=== PATIENT | female | born 1970 | race African-American/Black ===

== ENCOUNTER 2020-11-23 18:26 | Inpatient (IN) ==
[2020-11-23] MEDS ORDERED: METOCLOPRAMIDE 10 MG/2 ML VIAL ONE (20:07)
[2020-11-23] MEDS ORDERED: ONDANSETRON 4 MG/2 ML VIAL ONE (20:07)
[2020-11-23] MEDS ORDERED: PANTOPRAZOLE 40 MG VIAL IV ONE (20:07)
[2020-11-23 20:25] LABS: Basophils % 0.2 % (0.0-0.8); Hematocrit 40.9 VOL% (35.7-47.0); Hemoglobin 13.3 GM/DL (12.0-16.0); Immature Granulocytes % 0.6 %; Immature Granulocytes Absolute 0.03 #; Lymphocytes # 0.8 10*3/uL (1.4-4.0); Lymphocytes % 16.6 % (21.3-54.2); Mean Corpuscular HGB Conc 32.5 GM/DL (32-36); Mean Corpuscular Volume 81.3 FL (87-102); Mean Platelet Volume 10.7 FL (9.6-12.0); Monocytes % 4.6 % (1.7-12.7); Platelet Count 178 T/CUMM (130-400); Red Blood Count 5.03 MC/CUMM (3.8-5.5); White Blood Count 4.8 T/CUMM (4-12)
[2020-11-23] MEDS ORDERED: METOCLOPRAMIDE 10 MG/2 ML VIAL IV STA (20:37)
[2020-11-23] MEDS ORDERED: ONDANSETRON 4 MG/2 ML VIAL IV STA (20:37)
[2020-11-23] MEDS ORDERED: PANTOPRAZOLE 40 MG VIAL IV STA (20:37)
[2020-11-23] MEDS ORDERED: SODIUM CHLORIDE 0.9% 1,000 ML IV STA (20:37)
[2020-11-23 21:03] LABS: Alanine Aminotransferase 22 U/L (13-56); Albumin 3.2 G/DL (3.4-5.0); Alkaline Phosphatase 67 U/L (45-117); Aspartate Amino Transferase 58 U/L (0-37); Bilirubin,Total < 0.39 MG/DL (0.20-1.00); Blood Urea Nitrogen 17 MG/DL (7-18); Calcium 8.8 MG/DL (8.5-10.1); Carbon Dioxide 28 MMOL/L (21-32); Estimated Glom Filtration Rate 86 ML/MIN; Ferritin 293.9 ng/ml (8-252); Glucose 91 MG/DL (74-106); Osmolality,Calculated 269.2 MOS/KG (273-304); Potassium 3.7 MMOL/L (3.5-5.1); Sodium 134 MMOL/L (136-145); Total Protein 7.2 G/DL (6.4-8.2)
[2020-11-23] MEDS ORDERED: cefTRIAXone 1,000 MG in SODIUM CHLORIDE 0.9% 100 ML IV STA (21:09)
[2020-11-23] MEDS ORDERED: AZITHROMYCIN INJ 500 MG in SODIUM CHLORIDE 0.9% 250 ML IV STA (21:09)
[2020-11-23 21:39] LABS: ABG Base Excess -0.3 MMOL/L (-2.5-2.5); ABG HCO3 23.7 MMOL/L (20-26); ABG PCO2 36.6 MM HG (35-48); ABG PH 7.429 (7.35-7.45); ABG PO2 59.1 MM HG (80-95); ABG TCO2 24.8 MMOL/L (23-27); Allen Test Positive; Pt O2 Delivery Device Room Air
[2020-11-23] MEDS ORDERED: ONDANSETRON 4 MG/2 ML VIAL IV PRN (21:44)
[2020-11-23] MEDS ORDERED: CALCIUM CARBONATE CHEW 500 MG TABLET PO PRN (21:44)
[2020-11-23] MEDS ORDERED: diphenhydrAMINE CAP 25 MG CAPSULE PO PRN (21:44)
[2020-11-23] MEDS ORDERED: DEXTROSE 50% 25 GM/50 ML VIAL IV PRN (21:44)
[2020-11-23] MEDS ORDERED: NICOTINE 21 MG/24 HR PATCH TRANSDERM PRN (21:44)
[2020-11-23] MEDS ORDERED: GLUCAGON 1 MG VIAL IM PRN (21:44)
[2020-11-23] MEDS: ENOXAPARIN 40 MG/0.4 ML SYRINGE SUBCUT SCH (23:55)
[2020-11-23] MEDS: SODIUM CHLORIDE 0.9% 1,000 ML IV SCH (23:55)
[2020-11-24] MEDS: ACETAMINOPHEN 325 MG TABLET PO PRN ×2 (04:43→08:30)
[2020-11-24 06:55] LABS: Ferritin 283.3 ng/ml (8-252)
[2020-11-24] MEDS: guaiFENesin/DM ER 600-30 MG TABLET PO PRN (08:20)
[2020-11-24] MEDS: ASCORBIC ACID 500 MG TABLET PO SCH ×2 (08:20→21:41)
[2020-11-24] MEDS: DEXAMETHASONE 4 MG/1 ML VIAL IV SCH (08:20)
[2020-11-24] MEDS: CETIRIZINE 10 MG TABLET PO SCH (08:20)
[2020-11-24] MEDS: ZINC GLUCONATE 50 MG TABLET PO SCH (08:20)
[2020-11-24] MEDS: CHOLECALCIFEROL 1,000 UNIT TABLET PO SCH (08:20)
[2020-11-24] MEDS: FAMOTIDINE 20 MG TABLET PO SCH ×2 (08:20→21:40)
[2020-11-24] MEDS ORDERED: IBUPROFEN 600 MG TABLET PO PRN (08:58)
[2020-11-24] MEDS: AZITHROMYCIN 250 MG TABLET PO SCH (10:28)
[2020-11-24] MEDS: SODIUM CHLORIDE 0.9% 1,000 ML IV SCH (13:20)
[2020-11-24] MEDS: ENOXAPARIN 40 MG/0.4 ML SYRINGE SUBCUT SCH (21:40)
[2020-11-24] MEDS: MELATONIN 3 MG TABLET PO PRN (21:40)
[2020-11-24] MEDS: cefTRIAXone 1,000 MG in SODIUM CHLORIDE 0.9% 100 ML IV SCH (21:41)
[2020-11-25 05:08] LABS: Hematocrit 34.9 VOL% (35.7-47.0); Hemoglobin 11.3 GM/DL (12.0-16.0); Immature Granulocytes % 0.8 %; Immature Granulocytes Absolute 0.06 #; Lymphocytes # 0.6 10*3/uL (1.4-4.0); Lymphocytes % 8.2 % (21.3-54.2); Mean Corpuscular HGB Conc 32.4 GM/DL (32-36); Mean Corpuscular Volume 82.7 FL (87-102); Mean Platelet Volume 11.8 FL (9.6-12.0); Monocytes % 2.9 % (1.7-12.7); Neutrophils % 88.1 % (38.7-73.9); Platelet Count 199 T/CUMM (130-400); Red Blood Count 4.22 MC/CUMM (3.8-5.5); Red Cell Distribution Width 14.5 % (9.3-17.3); White Blood Count 7.2 T/CUMM (4-12)
[2020-11-25 05:43] LABS: Calcium 8.4 MG/DL (8.5-10.1); Ferritin 368.9 ng/ml (8-252); Osmolality,Calculated 275.8 MOS/KG (273-304); Potassium 4.5 MMOL/L (3.5-5.1)
[2020-11-25] MEDS: DEXAMETHASONE 4 MG/1 ML VIAL IV SCH (08:30)
[2020-11-25] MEDS: ZINC GLUCONATE 50 MG TABLET PO SCH (08:31)
[2020-11-25] MEDS: FAMOTIDINE 20 MG TABLET PO SCH ×2 (08:31→21:45)
[2020-11-25] MEDS: CETIRIZINE 10 MG TABLET PO SCH (08:31)
[2020-11-25] MEDS: ASCORBIC ACID 500 MG TABLET PO SCH ×2 (08:31→21:45)
[2020-11-25] MEDS: CHOLECALCIFEROL 1,000 UNIT TABLET PO SCH (08:31)
[2020-11-25] MEDS: AZITHROMYCIN 250 MG TABLET PO SCH (08:31)
[2020-11-25] MEDS ORDERED: CLORAZEPATE 3.75 MG TABLET PO PRN (11:17)
[2020-11-25] MEDS: IVERMECTIN 3 MG TABLET PO SCH (16:24)
[2020-11-25] MEDS ORDERED: CLORAZEPATE 3.75 MG TABLET PO SCH (21:00)
[2020-11-25] MEDS: ENOXAPARIN 40 MG/0.4 ML SYRINGE SUBCUT SCH (21:45)
[2020-11-25] MEDS: cefTRIAXone 1,000 MG in SODIUM CHLORIDE 0.9% 100 ML IV SCH (21:45)
[2020-11-25] MEDS: MELATONIN 3 MG TABLET PO PRN (21:50)
[2020-11-26 04:07] LABS: Hematocrit 35.1 VOL% (35.7-47.0); Hemoglobin 11.1 GM/DL (12.0-16.0); Immature Granulocytes % 0.7 %; Immature Granulocytes Absolute 0.05 #; Lymphocytes # 0.5 10*3/uL (1.4-4.0); Lymphocytes % 7.4 % (21.3-54.2); Mean Corpuscular HGB Conc 31.6 GM/DL (32-36); Mean Corpuscular Volume 82.2 FL (87-102); Mean Platelet Volume 11.4 FL (9.6-12.0); Monocytes % 7.4 % (1.7-12.7); Neutrophils % 84.5 % (38.7-73.9); Platelet Count 219 T/CUMM (130-400); Red Blood Count 4.27 MC/CUMM (3.8-5.5); Red Cell Distribution Width 14.7 % (9.3-17.3); White Blood Count 6.9 T/CUMM (4-12)
[2020-11-26 04:28] LABS: Hypochromasia 1+; Microcytosis 1+; Ovalocytes Slight; Platelet Estimate Normal
[2020-11-26 04:34] LABS: Alanine Aminotransferase 43 U/L (13-56); Albumin 2.3 G/DL (3.4-5.0); Alkaline Phosphatase 69 U/L (45-117); Aspartate Amino Transferase 116 U/L (0-37); Bilirubin,Total < 0.39 MG/DL (0.20-1.00); Blood Urea Nitrogen 21 MG/DL (7-18); Calcium 8.4 MG/DL (8.5-10.1); Carbon Dioxide 24 MMOL/L (21-32); Estimated Glom Filtration Rate 149 ML/MIN; Glucose 100 MG/DL (74-106); Osmolality,Calculated 277.7 MOS/KG (273-304); Potassium 4.3 MMOL/L (3.5-5.1); Sodium 138 MMOL/L (136-145); Total Protein 6.3 G/DL (6.4-8.2)
[2020-11-26 04:37] LABS: Ferritin 736.1 ng/ml (8-252)
[2020-11-26] MEDS: DEXAMETHASONE 4 MG/1 ML VIAL IV SCH (08:37)
[2020-11-26] MEDS: IVERMECTIN 3 MG TABLET PO SCH (08:37)
[2020-11-26] MEDS: CETIRIZINE 10 MG TABLET PO SCH (08:38)
[2020-11-26] MEDS: ZINC GLUCONATE 50 MG TABLET PO SCH (08:38)
[2020-11-26] MEDS: ASCORBIC ACID 500 MG TABLET PO SCH ×2 (08:38→20:44)
[2020-11-26] MEDS: AZITHROMYCIN 250 MG TABLET PO SCH (08:38)
[2020-11-26] MEDS: CHOLECALCIFEROL 1,000 UNIT TABLET PO SCH (08:38)
[2020-11-26] MEDS: FAMOTIDINE 20 MG TABLET PO SCH ×2 (08:38→20:44)
[2020-11-26] MEDS: ENOXAPARIN 40 MG/0.4 ML SYRINGE SUBCUT SCH (20:44)
[2020-11-26] MEDS: cefTRIAXone 1,000 MG in SODIUM CHLORIDE 0.9% 100 ML IV SCH (20:44)
[2020-11-26] MEDS: CLORAZEPATE 3.75 MG TABLET PO PRN (21:45)
[2020-11-26] MEDS: MELATONIN 3 MG TABLET PO PRN (22:05)
[2020-11-27 04:56] LABS: Basophils % 0.1 % (0.0-0.8); Hematocrit 36.2 VOL% (35.7-47.0); Hemoglobin 11.7 GM/DL (12.0-16.0); Immature Granulocytes Absolute 0.07 #; Lymphocytes # 0.7 10*3/uL (1.4-4.0); Lymphocytes % 9.9 % (21.3-54.2); Mean Corpuscular HGB Conc 32.3 GM/DL (32-36); Mean Corpuscular Volume 82.8 FL (87-102); Mean Platelet Volume 11.6 FL (9.6-12.0); Monocytes % 9.1 % (1.7-12.7); Neutrophils % 79.9 % (38.7-73.9); Platelet Count 281 T/CUMM (130-400); Red Blood Count 4.37 MC/CUMM (3.8-5.5); Red Cell Distribution Width 14.7 % (9.3-17.3); White Blood Count 7.3 T/CUMM (4-12)
[2020-11-27 05:20] LABS: Ferritin 1045.3 ng/ml (8-252)
[2020-11-27 05:21] LABS: Albumin 2.4 G/DL (3.4-5.0); Bilirubin,Total 0.4 MG/DL (0.20-1.00); Calcium 8.6 MG/DL (8.5-10.1); Osmolality,Calculated 272.8 MOS/KG (273-304); Total Protein 6.5 G/DL (6.4-8.2)
[2020-11-27 05:56] LABS: Band Neutrophils 1 % (0-10); Lymphocytes 7 % (20-55); Platelet Estimate Normal; Segmented Neutrophils 82 % (50-85); Total Cells Counted 100
[2020-11-27] MEDS: CHOLECALCIFEROL 1,000 UNIT TABLET PO SCH (09:11)
[2020-11-27] MEDS: IVERMECTIN 3 MG TABLET PO SCH (09:11)
[2020-11-27] MEDS: ASCORBIC ACID 500 MG TABLET PO SCH ×2 (09:11→20:30)
[2020-11-27] MEDS: CETIRIZINE 10 MG TABLET PO SCH (09:11)
[2020-11-27] MEDS: ZINC GLUCONATE 50 MG TABLET PO SCH (09:11)
[2020-11-27] MEDS: DEXAMETHASONE 4 MG/1 ML VIAL IV SCH (09:11)
[2020-11-27] MEDS: FAMOTIDINE 20 MG TABLET PO SCH ×2 (09:12→20:30)
[2020-11-27] MEDS: AZITHROMYCIN 250 MG TABLET PO SCH (09:58)
[2020-11-27] MEDS: BENZONATATE 100 MG CAPSULE PO PRN (11:28)
[2020-11-27] MEDS: CLORAZEPATE 3.75 MG TABLET PO PRN (11:28)
[2020-11-27] MEDS: ALPRAZolam 0.5 MG TABLET PO PRN ×2 (14:17→22:00)
[2020-11-27] MEDS: cefTRIAXone 1,000 MG in SODIUM CHLORIDE 0.9% 100 ML IV SCH (22:00)
[2020-11-27] MEDS ORDERED: ENOXAPARIN 100 MG/ML SYRINGE SUBCUT SCH (22:00)
[2020-11-28] MEDS ORDERED: ALPRAZolam 0.5 MG TABLET PO ONE (04:55)
[2020-11-28 05:35] LABS: Basophils % 0.1 % (0.0-0.8); Hematocrit 39.4 VOL% (35.7-47.0); Hemoglobin 12.5 GM/DL (12.0-16.0); Immature Granulocytes % 1.3 %; Immature Granulocytes Absolute 0.09 #; Lymphocytes # 0.8 10*3/uL (1.4-4.0); Lymphocytes % 11.4 % (21.3-54.2); Mean Corpuscular HGB Conc 31.7 GM/DL (32-36); Mean Corpuscular Volume 81.9 FL (87-102); Mean Platelet Volume 10.7 FL (9.6-12.0); Monocytes % 10.7 % (1.7-12.7); Neutrophils % 76.5 % (38.7-73.9); Platelet Count 233 T/CUMM (130-400); Red Blood Count 4.81 MC/CUMM (3.8-5.5); Red Cell Distribution Width 14.5 % (9.3-17.3); White Blood Count 6.8 T/CUMM (4-12)
[2020-11-28 06:04] LABS: Ferritin 724.5 ng/ml (8-252)
[2020-11-28 06:06] LABS: Albumin 2.2 G/DL (3.4-5.0); Bilirubin,Total 1.1 MG/DL (0.20-1.00); Calcium 8.8 MG/DL (8.5-10.1); Osmolality,Calculated 281.3 MOS/KG (273-304); Potassium 3.8 MMOL/L (3.5-5.1); Total Protein 6.3 G/DL (6.4-8.2)
[2020-11-28 09:02] LABS: ABG Base Excess 3.8 MMOL/L (-2.5-2.5); ABG HCO3 27.4 MMOL/L (20-26); ABG Oxygen Saturation 80.1 % (95-100); ABG PCO2 39.2 MM HG (35-48); ABG PH 7.458 (7.35-7.45); ABG PO2 46.6 MM HG (80-95); ABG TCO2 24.5 MMOL/L (23-27)
[2020-11-28] MEDS ORDERED: LORazepam 2 MG/1 ML VIAL IV ONE (09:30)
[2020-11-28] MEDS: ASCORBIC ACID 500 MG TABLET PO SCH ×2 (09:49→21:30)
[2020-11-28] MEDS: CHOLECALCIFEROL 1,000 UNIT TABLET PO SCH (09:49)
[2020-11-28] MEDS: ENOXAPARIN 100 MG/ML SYRINGE SUBCUT SCH ×2 (09:49→21:30)
[2020-11-28] MEDS: CETIRIZINE 10 MG TABLET PO SCH (09:49)
[2020-11-28] MEDS: FAMOTIDINE 20 MG TABLET PO SCH ×2 (09:49→21:30)
[2020-11-28] MEDS: ZINC GLUCONATE 50 MG TABLET PO SCH (09:49)
[2020-11-28] MEDS: SODIUM CHLORIDE 0.9% 1,000 ML IV SCH (09:50)
[2020-11-28] MEDS: DEXAMETHASONE 4 MG/1 ML VIAL IV SCH (09:50)
[2020-11-28] MEDS: IVERMECTIN 3 MG TABLET PO SCH (09:59)
[2020-11-28] MEDS ORDERED: LORazepam 2 MG/1 ML VIAL IV PRN (10:41)
[2020-11-28 14:37] LABS: Hepatitis B Core IgM Quant 0.12 Index; Hepatitis B Surface Ag Quant < 0.10 Index; Hepatitis B Surface Ag Result Non-Reactive (NonReactive); Hepatitis C Virus Ab Quant 0.07 Index; Hepatitis C Virus Ab Result Non-Reactive (NonReactive)
[2020-11-28] MEDS ORDERED: MORPHINE 2 MG/1 ML SYRINGE IV ONE (21:47)
[2020-11-28] MEDS: cefTRIAXone 1,000 MG in SODIUM CHLORIDE 0.9% 100 ML IV SCH (22:00)
[2020-11-29 05:13] LABS: ABG Base Excess 3.6 MMOL/L (-2.5-2.5); ABG HCO3 27.7 MMOL/L (20-26); ABG Oxygen Saturation 99.1 % (95-100); ABG PH 7.414 (7.35-7.45); ABG TCO2 25.4 MMOL/L (23-27)
[2020-11-29 05:27] LABS: Basophils % 0.2 % (0.0-0.8); Eosinophils % 0.1 % (0.00-10.9); Hematocrit 40.4 VOL% (35.7-47.0); Hemoglobin 12.9 GM/DL (12.0-16.0); Immature Granulocytes % 1.9 %; Immature Granulocytes Absolute 0.16 #; Lymphocytes # 1.1 10*3/uL (1.4-4.0); Lymphocytes % 12.7 % (21.3-54.2); Mean Corpuscular HGB Conc 31.9 GM/DL (32-36); Mean Corpuscular Volume 82.4 FL (87-102); Mean Platelet Volume 11.1 FL (9.6-12.0); Monocytes % 10.9 % (1.7-12.7); Neutrophils % 74.2 % (38.7-73.9); Platelet Count 265 T/CUMM (130-400); Red Cell Distribution Width 14.4 % (9.3-17.3); White Blood Count 8.3 T/CUMM (4-12)
[2020-11-29 05:50] LABS: Albumin 2.2 G/DL (3.4-5.0); Bilirubin,Total 0.4 MG/DL (0.20-1.00); Calcium 8.8 MG/DL (8.5-10.1); Osmolality,Calculated 276.5 MOS/KG (273-304); Potassium 3.9 MMOL/L (3.5-5.1); Total Protein 6.6 G/DL (6.4-8.2)
[2020-11-29 05:59] LABS: Ferritin 637.6 ng/ml (8-252)
[2020-11-29] MEDS: SODIUM CHLORIDE 0.9% 1,000 ML IV SCH (07:39)
[2020-11-29] MEDS: DEXAMETHASONE 4 MG/1 ML VIAL IV SCH (08:03)
[2020-11-29] MEDS: FAMOTIDINE 20 MG TABLET PO SCH ×2 (08:04→21:53)
[2020-11-29] MEDS: ENOXAPARIN 100 MG/ML SYRINGE SUBCUT SCH ×2 (08:04→21:53)
[2020-11-29] MEDS: IVERMECTIN 3 MG TABLET PO SCH (08:04)
[2020-11-29] MEDS: CETIRIZINE 10 MG TABLET PO SCH (08:04)
[2020-11-29] MEDS: ASCORBIC ACID 500 MG TABLET PO SCH ×2 (08:04→21:53)
[2020-11-29] MEDS: ZINC GLUCONATE 50 MG TABLET PO SCH (08:04)
[2020-11-29] MEDS: CHOLECALCIFEROL 1,000 UNIT TABLET PO SCH (08:08)
[2020-11-29] MEDS: MORPHINE 2 MG/1 ML SYRINGE IV PRN ×2 (13:37→17:49)
[2020-11-29] MEDS: cefTRIAXone 1,000 MG in SODIUM CHLORIDE 0.9% 100 ML IV SCH (21:53)
[2020-11-30 04:53] LABS: Basophils % 0.2 % (0.0-0.8); Eosinophils # 0.1 10*3/uL (0.0-0.87); Eosinophils % 0.7 % (0.00-10.9); Hematocrit 38.1 VOL% (35.7-47.0); Hemoglobin 11.9 GM/DL (12.0-16.0); Immature Granulocytes % 3.1 %; Lymphocytes # 1.1 10*3/uL (1.4-4.0); Lymphocytes % 11.1 % (21.3-54.2); Mean Corpuscular HGB Conc 31.2 GM/DL (32-36); Mean Corpuscular Volume 84.1 FL (87-102); Mean Platelet Volume 10.5 FL (9.6-12.0); Monocytes % 11.9 % (1.7-12.7); Platelet Count 249 T/CUMM (130-400); Red Blood Count 4.53 MC/CUMM (3.8-5.5); Red Cell Distribution Width 14.2 % (9.3-17.3); White Blood Count 9.5 T/CUMM (4-12)
[2020-11-30 05:07] LABS: Bilirubin,Total 0.4 MG/DL (0.20-1.00); Calcium 8.7 MG/DL (8.5-10.1); Osmolality,Calculated 281.3 MOS/KG (273-304); Potassium 4.1 MMOL/L (3.5-5.1)
[2020-11-30] MEDS: SODIUM CHLORIDE 0.9% 1,000 ML IV SCH ×2 (06:44→22:25)
[2020-11-30] MEDS: ENOXAPARIN 100 MG/ML SYRINGE SUBCUT SCH ×2 (08:16→22:23)
[2020-11-30] MEDS: FAMOTIDINE 20 MG TABLET PO SCH ×2 (08:16→22:25)
[2020-11-30] MEDS: DEXAMETHASONE 4 MG/1 ML VIAL IV SCH (08:16)
[2020-11-30] MEDS: ASCORBIC ACID 500 MG TABLET PO SCH ×2 (08:17→22:25)
[2020-11-30] MEDS: ZINC GLUCONATE 50 MG TABLET PO SCH (08:17)
[2020-11-30] MEDS: CHOLECALCIFEROL 1,000 UNIT TABLET PO SCH (08:17)
[2020-11-30] MEDS: CETIRIZINE 10 MG TABLET PO SCH (08:17)
[2020-11-30] MEDS: MORPHINE 2 MG/1 ML SYRINGE IV PRN (22:25)
[2020-11-30] MEDS: cefTRIAXone 1,000 MG in SODIUM CHLORIDE 0.9% 100 ML IV SCH (22:25)
[2020-12-01 05:17] LABS: Basophils % 0.3 % (0.0-0.8); Eosinophils # 0.1 10*3/uL (0.0-0.87); Eosinophils % 0.8 % (0.00-10.9); Hematocrit 35.9 VOL% (35.7-47.0); Hemoglobin 11.8 GM/DL (12.0-16.0); Immature Granulocytes % 4.8 %; Immature Granulocytes Absolute 0.46 #; Lymphocytes % 10.8 % (21.3-54.2); Mean Corpuscular HGB Conc 32.9 GM/DL (32-36); Mean Corpuscular Volume 82.5 FL (87-102); Mean Platelet Volume 11.3 FL (9.6-12.0); Monocytes % 11.1 % (1.7-12.7); Neutrophils % 72.2 % (38.7-73.9); Platelet Count 257 T/CUMM (130-400); Red Blood Count 4.35 MC/CUMM (3.8-5.5); Red Cell Distribution Width 13.8 % (9.3-17.3); White Blood Count 9.5 T/CUMM (4-12)
[2020-12-01 05:40] LABS: Calcium 8.8 MG/DL (8.5-10.1); Osmolality,Calculated 275.5 MOS/KG (273-304); Potassium 3.8 MMOL/L (3.5-5.1)
[2020-12-01] MEDS: ALPRAZolam 0.5 MG TABLET PO PRN (05:45)
[2020-12-01] MEDS: FAMOTIDINE 20 MG TABLET PO SCH ×2 (09:00→21:25)
[2020-12-01] MEDS: ASCORBIC ACID 500 MG TABLET PO SCH ×2 (09:00→21:25)
[2020-12-01] MEDS: CHOLECALCIFEROL 1,000 UNIT TABLET PO SCH (09:00)
[2020-12-01] MEDS: DEXAMETHASONE 4 MG/1 ML VIAL IV SCH (09:00)
[2020-12-01] MEDS: ENOXAPARIN 100 MG/ML SYRINGE SUBCUT SCH (09:10)
[2020-12-01] MEDS: ZINC GLUCONATE 50 MG TABLET PO SCH (15:00)
[2020-12-01] MEDS: CETIRIZINE 10 MG TABLET PO SCH (15:00)
[2020-12-01] MEDS ORDERED: APIXABAN 5 MG TABLET PO SCH (21:00)
[2020-12-01] MEDS: cefTRIAXone 1,000 MG in SODIUM CHLORIDE 0.9% 100 ML IV SCH (21:25)
[2020-12-01] MEDS: APIXABAN 5 MG TABLET PO SCH (21:26)
[2020-12-02 06:26] LABS: Basophils % 0.3 % (0.0-0.8); Eosinophils % 0.1 % (0.00-10.9); Hematocrit 35.8 VOL% (35.7-47.0); Hemoglobin 11.5 GM/DL (12.0-16.0); Immature Granulocytes % 6.3 %; Immature Granulocytes Absolute 0.74 #; Lymphocytes # 0.8 10*3/uL (1.4-4.0); Lymphocytes % 6.6 % (21.3-54.2); Mean Corpuscular HGB Conc 32.1 GM/DL (32-36); Mean Corpuscular Volume 82.9 FL (87-102); Mean Platelet Volume 11.3 FL (9.6-12.0); Monocytes % 8.8 % (1.7-12.7); Neutrophils % 77.9 % (38.7-73.9); Platelet Count 259 T/CUMM (130-400); Red Blood Count 4.32 MC/CUMM (3.8-5.5); Red Cell Distribution Width 13.9 % (9.3-17.3); White Blood Count 11.7 T/CUMM (4-12)
[2020-12-02 06:54] LABS: Calcium 8.5 MG/DL (8.5-10.1); Ferritin 622.8 ng/ml (8-252); Osmolality,Calculated 275.5 MOS/KG (273-304); Potassium 3.8 MMOL/L (3.5-5.1)
[2020-12-02 06:55] LABS: Band Neutrophils 1 % (0-10); Hypochromasia Slight; Lymphocytes 5 % (20-55); Microcytosis Slight; Platelet Estimate Adequate; Segmented Neutrophils 81 % (50-85); Total Cells Counted 100
[2020-12-02] MEDS: DEXAMETHASONE 4 MG/1 ML VIAL IV SCH (09:45)
[2020-12-02] MEDS: ASCORBIC ACID 500 MG TABLET PO SCH ×2 (10:00→20:38)
[2020-12-02] MEDS: CHOLECALCIFEROL 1,000 UNIT TABLET PO SCH (10:00)
[2020-12-02] MEDS: FAMOTIDINE 20 MG TABLET PO SCH ×2 (10:00→23:13)
[2020-12-02] MEDS ORDERED: KETOROLAC 30 MG/1 ML VIAL IV SCH (10:00)
[2020-12-02] MEDS: APIXABAN 5 MG TABLET PO SCH ×2 (10:00→20:29)
[2020-12-02] MEDS: SODIUM CHLORIDE 0.9% 1,000 ML IV SCH (12:30)
[2020-12-02] MEDS: CETIRIZINE 10 MG TABLET PO SCH (17:18)
[2020-12-02] MEDS: ZINC GLUCONATE 50 MG TABLET PO SCH (17:18)
[2020-12-02] MEDS: KETOROLAC 30 MG/1 ML VIAL IV PRN (20:38)
[2020-12-02] MEDS: MELATONIN 3 MG TABLET PO PRN (20:38)
[2020-12-03 05:12] LABS: Basophils % 0.2 % (0.0-0.8); Eosinophils % 0.3 % (0.00-10.9); Hematocrit 35.7 VOL% (35.7-47.0); Hemoglobin 11.4 GM/DL (12.0-16.0); Immature Granulocytes % 6.7 %; Immature Granulocytes Absolute 0.97 #; Lymphocytes # 0.9 10*3/uL (1.4-4.0); Lymphocytes % 6.5 % (21.3-54.2); Mean Corpuscular HGB Conc 31.9 GM/DL (32-36); Mean Platelet Volume 10.9 FL (9.6-12.0); Monocytes % 8.5 % (1.7-12.7); NRBC # 0.02 10*3/uL; Neutrophils % 77.8 % (38.7-73.9); Platelet Count 266 T/CUMM (130-400); Red Cell Distribution Width 14.1 % (9.3-17.3); White Blood Count 14.5 T/CUMM (4-12)
[2020-12-03 05:49] LABS: Calcium 8.9 MG/DL (8.5-10.1); Ferritin 688.1 ng/ml (8-252); Osmolality,Calculated 274.8 MOS/KG (273-304); Potassium 3.8 MMOL/L (3.5-5.1)
[2020-12-03] MEDS: SODIUM CHLORIDE 0.9% 1,000 ML IV SCH ×2 (09:41→11:29)
[2020-12-03] MEDS: KETOROLAC 30 MG/1 ML VIAL IV PRN ×2 (09:45→21:31)
[2020-12-03] MEDS: DEXAMETHASONE 4 MG/1 ML VIAL IV SCH (09:46)
[2020-12-03] MEDS: CETIRIZINE 10 MG TABLET PO SCH (09:47)
[2020-12-03] MEDS: FAMOTIDINE 20 MG TABLET PO SCH ×2 (09:47→21:31)
[2020-12-03] MEDS: CHOLECALCIFEROL 1,000 UNIT TABLET PO SCH (09:47)
[2020-12-03] MEDS: ZINC GLUCONATE 50 MG TABLET PO SCH (09:47)
[2020-12-03] MEDS: ASCORBIC ACID 500 MG TABLET PO SCH ×2 (09:47→21:31)
[2020-12-03] MEDS: APIXABAN 5 MG TABLET PO SCH ×2 (09:47→21:31)
[2020-12-03 10:05] LABS: Hypochromasia 1+; Lymphocytes 8 % (20-55); Microcytosis 1+; Platelet Estimate Normal; Segmented Neutrophils 74 % (50-85); Total Cells Counted 100
[2020-12-03] MEDS: PANTOPRAZOLE 40 MG TABLET PO SCH (15:05)
[2020-12-03] MEDS: ALPRAZolam 0.5 MG TABLET PO PRN (15:05)
[2020-12-03] MEDS: MELATONIN 3 MG TABLET PO PRN (21:31)
[2020-12-04] MEDS: ACETAMINOPHEN 325 MG TABLET PO PRN ×2 (04:32→12:02)
[2020-12-04] MEDS: SODIUM CHLORIDE 0.9% 1,000 ML IV SCH (05:30)
[2020-12-04 05:50] LABS: Basophils % 0.2 % (0.0-0.8); Eosinophils # 0.1 10*3/uL (0.0-0.87); Eosinophils % 0.8 % (0.00-10.9); Hematocrit 37.5 VOL% (35.7-47.0); Hemoglobin 11.6 GM/DL (12.0-16.0); Immature Granulocytes % 4.8 %; Immature Granulocytes Absolute 0.69 #; Lymphocytes # 1.3 10*3/uL (1.4-4.0); Lymphocytes % 8.7 % (21.3-54.2); Mean Corpuscular HGB Conc 30.9 GM/DL (32-36); Mean Corpuscular Volume 84.7 FL (87-102); Mean Platelet Volume 11.6 FL (9.6-12.0); Monocytes % 8.3 % (1.7-12.7); Neutrophils % 77.2 % (38.7-73.9); Platelet Count 281 T/CUMM (130-400); Red Blood Count 4.43 MC/CUMM (3.8-5.5); Red Cell Distribution Width 14.1 % (9.3-17.3); White Blood Count 14.4 T/CUMM (4-12)
[2020-12-04 06:10] LABS: Calcium 8.8 MG/DL (8.5-10.1); Ferritin 668.5 ng/ml (8-252); Osmolality,Calculated 279.4 MOS/KG (273-304); Potassium 3.9 MMOL/L (3.5-5.1)
[2020-12-04] MEDS: KETOROLAC 30 MG/1 ML VIAL IV PRN (08:30)
[2020-12-04 09:54] LABS: Lymphocytes 7 % (20-55); Segmented Neutrophils 83 % (50-85); Total Cells Counted 100
[2020-12-04 09:55] LABS: Hypochromasia 2+; Platelet Estimate Normal
[2020-12-04] MEDS: DEXAMETHASONE 10 MG/1 ML VIAL IV SCH (11:14)
[2020-12-04] MEDS: CHOLECALCIFEROL 1,000 UNIT TABLET PO SCH (11:15)
[2020-12-04] MEDS: FAMOTIDINE 20 MG TABLET PO SCH ×2 (11:15→20:52)
[2020-12-04] MEDS: APIXABAN 5 MG TABLET PO SCH ×2 (11:15→20:52)
[2020-12-04] MEDS: ZINC GLUCONATE 50 MG TABLET PO SCH (11:15)
[2020-12-04] MEDS: ASCORBIC ACID 500 MG TABLET PO SCH ×2 (11:16→20:52)
[2020-12-04] MEDS: PANTOPRAZOLE 40 MG TABLET PO SCH (11:17)
[2020-12-04] MEDS: CETIRIZINE 10 MG TABLET PO SCH (11:17)
[2020-12-04] MEDS: ALPRAZolam 0.5 MG TABLET PO PRN ×2 (12:03→20:52)
[2020-12-04] MEDS: AZITHROMYCIN 250 MG TABLET PO SCH (12:09)
[2020-12-04] MEDS ORDERED: REMDESIVIR 200 MG in SODIUM CHLORIDE 0.9% 210 ML IV ONE (14:00)
[2020-12-04] MEDS: MORPHINE 2 MG/1 ML SYRINGE IV PRN (14:36)
[2020-12-05] MEDS: SODIUM CHLORIDE 0.9% 1,000 ML IV SCH (02:00)
[2020-12-05] MEDS: BENZONATATE 100 MG CAPSULE PO PRN ×2 (05:00→10:50)
[2020-12-05] MEDS: MORPHINE 2 MG/1 ML SYRINGE IV PRN ×2 (05:00→23:46)
[2020-12-05] MEDS: ALPRAZolam 0.5 MG TABLET PO PRN ×3 (05:00→22:04)
[2020-12-05 06:31] LABS: Basophils % 0.2 % (0.0-0.8); Eosinophils % 0.1 % (0.00-10.9); Hematocrit 36.5 VOL% (35.7-47.0); Hemoglobin 11.6 GM/DL (12.0-16.0); Immature Granulocytes % 2.5 %; Immature Granulocytes Absolute 0.41 #; Lymphocytes # 1.3 10*3/uL (1.4-4.0); Lymphocytes % 7.5 % (21.3-54.2); Mean Corpuscular HGB Conc 31.8 GM/DL (32-36); Mean Corpuscular Volume 83.5 FL (87-102); Mean Platelet Volume 11.6 FL (9.6-12.0); Monocytes % 7.4 % (1.7-12.7); Neutrophils % 82.3 % (38.7-73.9); Platelet Count 308 T/CUMM (130-400); Red Blood Count 4.37 MC/CUMM (3.8-5.5); White Blood Count 16.6 T/CUMM (4-12)
[2020-12-05 06:43] LABS: Calcium 8.9 MG/DL (8.5-10.1); Osmolality,Calculated 278.4 MOS/KG (273-304); Potassium 3.9 MMOL/L (3.5-5.1)
[2020-12-05] MEDS: DEXAMETHASONE 10 MG/1 ML VIAL IV SCH (08:30)
[2020-12-05] MEDS: AZITHROMYCIN 250 MG TABLET PO SCH (09:00)
[2020-12-05] MEDS: APIXABAN 5 MG TABLET PO SCH ×2 (09:00→22:03)
[2020-12-05] MEDS: ZINC GLUCONATE 50 MG TABLET PO SCH (09:00)
[2020-12-05] MEDS: ASCORBIC ACID 500 MG TABLET PO SCH ×2 (09:00→22:04)
[2020-12-05] MEDS: PANTOPRAZOLE 40 MG TABLET PO SCH (09:00)
[2020-12-05] MEDS: CETIRIZINE 10 MG TABLET PO SCH (09:00)
[2020-12-05] MEDS: CHOLECALCIFEROL 1,000 UNIT TABLET PO SCH (09:00)
[2020-12-05] MEDS: REMDESIVIR 100 MG in SODIUM CHLORIDE 0.9% 100 ML IV SCH (10:30)
[2020-12-05] MEDS: FAMOTIDINE 20 MG TABLET PO SCH ×2 (13:30→22:03)
[2020-12-05] MEDS: MELATONIN 3 MG TABLET PO PRN (22:04)
[2020-12-05] MEDS: ACETAMINOPHEN 325 MG TABLET PO PRN (22:04)
[2020-12-05] MEDS: guaiFENesin/DM ER 600-30 MG TABLET PO PRN (22:05)
[2020-12-06 02:21] LABS: ABG Base Excess 4.4 MMOL/L (-2.5-2.5); ABG HCO3 28.2 MMOL/L (20-26); ABG Oxygen Saturation 89.1 % (95-100); ABG PCO2 51.8 MM HG (35-48); ABG PH 7.381 (7.35-7.45); ABG PO2 62.1 MM HG (80-95); ABG TCO2 27.5 MMOL/L (23-27)
[2020-12-06 05:41] LABS: Basophils # 0.1 10*3/uL (0.0-0.2); Basophils % 0.3 % (0.0-0.8); Eosinophils % 0.2 % (0.00-10.9); Hematocrit 38.3 VOL% (35.7-47.0); Immature Granulocytes % 1.8 %; Immature Granulocytes Absolute 0.28 #; Lymphocytes # 1.6 10*3/uL (1.4-4.0); Lymphocytes % 10.7 % (21.3-54.2); Mean Corpuscular HGB Conc 31.3 GM/DL (32-36); Mean Corpuscular Volume 85.3 FL (87-102); Mean Platelet Volume 11.6 FL (9.6-12.0); Monocytes % 7.8 % (1.7-12.7); Neutrophils % 79.2 % (38.7-73.9); Platelet Count 297 T/CUMM (130-400); Red Blood Count 4.49 MC/CUMM (3.8-5.5); White Blood Count 15.2 T/CUMM (4-12)
[2020-12-06] MEDS: SODIUM CHLORIDE 0.9% 1,000 ML IV SCH ×2 (05:52→17:19)
[2020-12-06 06:11] LABS: Albumin 2.3 G/DL (3.4-5.0); Bilirubin,Total 0.4 MG/DL (0.20-1.00); Ferritin 654.9 ng/ml (8-252); Osmolality,Calculated 279.4 MOS/KG (273-304); Potassium 4.1 MMOL/L (3.5-5.1); Total Protein 6.6 G/DL (6.4-8.2)
[2020-12-06] MEDS: REMDESIVIR 100 MG in SODIUM CHLORIDE 0.9% 100 ML IV SCH (10:38)
[2020-12-06] MEDS: DEXAMETHASONE 10 MG/1 ML VIAL IV SCH (10:39)
[2020-12-06] MEDS: AZITHROMYCIN 250 MG TABLET PO SCH (10:39)
[2020-12-06] MEDS: CHOLECALCIFEROL 1,000 UNIT TABLET PO SCH (10:39)
[2020-12-06] MEDS: FAMOTIDINE 20 MG TABLET PO SCH ×2 (10:39→21:30)
[2020-12-06] MEDS: ZINC GLUCONATE 50 MG TABLET PO SCH (10:40)
[2020-12-06] MEDS: CETIRIZINE 10 MG TABLET PO SCH (10:40)
[2020-12-06] MEDS: ASCORBIC ACID 500 MG TABLET PO SCH ×2 (10:40→21:31)
[2020-12-06] MEDS: ALPRAZolam 0.5 MG TABLET PO PRN ×2 (10:40→21:31)
[2020-12-06] MEDS: PANTOPRAZOLE 40 MG TABLET PO SCH (10:40)
[2020-12-06] MEDS: APIXABAN 5 MG TABLET PO SCH ×2 (10:40→21:30)
[2020-12-06] MEDS: ACETAMINOPHEN 325 MG TABLET PO PRN (14:53)
[2020-12-07] MEDS: KETOROLAC 30 MG/1 ML VIAL IV PRN (01:25)
[2020-12-07 06:13] LABS: Basophils % 0.2 % (0.0-0.8); Eosinophils # 0.2 10*3/uL (0.0-0.87); Eosinophils % 0.8 % (0.00-10.9); Hematocrit 35.6 VOL% (35.7-47.0); Hemoglobin 11.4 GM/DL (12.0-16.0); Immature Granulocytes % 1.4 %; Immature Granulocytes Absolute 0.26 #; Lymphocytes # 1.7 10*3/uL (1.4-4.0); Mean Corpuscular Volume 82.8 FL (87-102); Mean Platelet Volume 11.7 FL (9.6-12.0); Monocytes % 5.7 % (1.7-12.7); Neutrophils % 82.9 % (38.7-73.9); Platelet Count 327 T/CUMM (130-400); Red Cell Distribution Width 14.3 % (9.3-17.3); White Blood Count 18.3 T/CUMM (4-12)
[2020-12-07 06:41] LABS: Albumin 2.3 G/DL (3.4-5.0); Bilirubin,Total 0.4 MG/DL (0.20-1.00); Calcium 8.8 MG/DL (8.5-10.1); Ferritin 665.7 ng/ml (8-252); Osmolality,Calculated 276.5 MOS/KG (273-304); Potassium 3.4 MMOL/L (3.5-5.1); Total Protein 6.2 G/DL (6.4-8.2)
[2020-12-07] MEDS: ALPRAZolam 0.5 MG TABLET PO PRN ×2 (07:26→15:18)
[2020-12-07] MEDS: REMDESIVIR 100 MG in SODIUM CHLORIDE 0.9% 100 ML IV SCH (09:52)
[2020-12-07] MEDS: DEXAMETHASONE 10 MG/1 ML VIAL IV SCH (09:52)
[2020-12-07] MEDS: APIXABAN 5 MG TABLET PO SCH ×2 (09:52→20:20)
[2020-12-07] MEDS: AZITHROMYCIN 250 MG TABLET PO SCH (09:53)
[2020-12-07] MEDS: CETIRIZINE 10 MG TABLET PO SCH (09:53)
[2020-12-07] MEDS: ZINC GLUCONATE 50 MG TABLET PO SCH (09:53)
[2020-12-07] MEDS: CHOLECALCIFEROL 1,000 UNIT TABLET PO SCH (09:53)
[2020-12-07] MEDS: FAMOTIDINE 20 MG TABLET PO SCH ×2 (09:53→20:20)
[2020-12-07] MEDS: ASCORBIC ACID 500 MG TABLET PO SCH ×2 (09:53→20:20)
[2020-12-07] MEDS: PANTOPRAZOLE 40 MG TABLET PO SCH (09:53)
[2020-12-07 11:06] LABS: ABG HCO3 30.5 MMOL/L (20-26); ABG Oxygen Saturation 88.7 % (95-100); ABG PH 7.412 (7.35-7.45); ABG PO2 58.2 MM HG (80-95)
[2020-12-07] MEDS ORDERED: ALPRAZolam 0.5 MG TABLET PO ONE (11:47)
[2020-12-07] MEDS: SODIUM CHLORIDE 0.9% 1,000 ML IV SCH (13:26)
[2020-12-07] MEDS: POTASSIUM CHLORIDE 20 MEQ TABLET PO PRN (17:21)
[2020-12-07 21:19] LABS: ABG Base Excess 6.6 MMOL/L (-2.5-2.5); ABG HCO3 30.1 MMOL/L (20-26); ABG Oxygen Saturation 81.3 % (95-100); ABG PCO2 48.3 MM HG (35-48); ABG PO2 47.6 MM HG (80-95); ABG TCO2 28.7 MMOL/L (23-27)
[2020-12-07] MEDS ORDERED: ETOMIDATE 20 MG/10 ML VIAL IV ONE (21:51)
[2020-12-07] MEDS ORDERED: ROCURONIUM 100 MG/10 ML VIAL IV ONE ×2 (21:51→22:32)
[2020-12-07] MEDS ORDERED: ATROPINE 1 MG/10 ML SYRINGE ONE (22:07)
[2020-12-07] MEDS ORDERED: PHENYLEPHRINE DRIP 40 MG/250 ML PREMIX IV ONE (22:48)
[2020-12-07 22:52] LABS: ABG Base Excess 1.6 MMOL/L (-2.5-2.5); ABG HCO3 25.3 MMOL/L (20-26); ABG PH 7.256 (7.35-7.45); ABG PO2 46.1 MM HG (80-95); ABG TCO2 28.3 MMOL/L (23-27)
[2020-12-07 22:55] LABS: ABG PCO2 69.7 MM HG (35-48)
[2020-12-07] MEDS: PHENYLEPHRINE DRIP 40 MG/250 ML PREMIX IV PRN (23:15)
[2020-12-08 05:15] LABS: ABG Base Excess 1.6 MMOL/L (-2.5-2.5); ABG Oxygen Saturation 91.4 % (95-100); ABG PO2 73.3 MM HG (80-95); ABG TCO2 34.5 MMOL/L (23-27)
[2020-12-08 05:17] LABS: ABG PCO2 83.3 MM HG (35-48); ABG PH 7.202 (7.35-7.45)
[2020-12-08] MEDS: SODIUM CHLORIDE 0.9% 1,000 ML IV SCH ×2 (06:03→23:17)
[2020-12-08 07:37] LABS: Basophils # 0.1 10*3/uL (0.0-0.2); Basophils % 0.2 % (0.0-0.8); Eosinophils % 0.1 % (0.00-10.9); Hemoglobin 12.7 GM/DL (12.0-16.0); Immature Granulocytes % 2.8 %; Lymphocytes # 1.7 10*3/uL (1.4-4.0); Lymphocytes % 4.8 % (21.3-54.2); Mean Corpuscular HGB Conc 30.2 GM/DL (32-36); Mean Corpuscular Volume 88.6 FL (87-102); Mean Platelet Volume 11.1 FL (9.6-12.0); Monocytes % 4.1 % (1.7-12.7); NRBC # 0.03 10*3/uL; Platelet Count 439 T/CUMM (130-400); Red Blood Count 4.74 MC/CUMM (3.8-5.5); Red Cell Distribution Width 14.7 % (9.3-17.3); White Blood Count 36.3 T/CUMM (4-12)
[2020-12-08] MEDS ORDERED: SODIUM BICARBONATE 50 MEQ/50 ML SYRINGE IV ONE (07:40)
[2020-12-08] MEDS ORDERED: EPINEPHrine 1 MG/10 ML SYRINGE ONE (07:40)
[2020-12-08 07:58] LABS: Albumin 2.5 G/DL (3.4-5.0); Bilirubin,Total 1.5 MG/DL (0.20-1.00); Calcium 8.9 MG/DL (8.5-10.1); Ferritin 875.8 ng/ml (8-252); Osmolality,Calculated 280.4 MOS/KG (273-304); Potassium 4.2 MMOL/L (3.5-5.1); Total Protein 7.1 G/DL (6.4-8.2)
[2020-12-08 07:59] LABS: Anisocytosis 1+; Band Neutrophils 3 % (0-10); Lymphocytes 5 % (20-55); Platelet Estimate Normal; Segmented Neutrophils 86 % (50-85); Smudge Cells Few; Total Cells Counted 100
[2020-12-08] MEDS: CHOLECALCIFEROL 1,000 UNIT TABLET PO SCH (08:41)
[2020-12-08] MEDS: AZITHROMYCIN 250 MG TABLET PO SCH (08:41)
[2020-12-08] MEDS: DEXAMETHASONE 10 MG/1 ML VIAL IV SCH (08:41)
[2020-12-08] MEDS: ZINC GLUCONATE 50 MG TABLET PO SCH (08:41)
[2020-12-08] MEDS: CETIRIZINE 10 MG TABLET PO SCH (08:42)
[2020-12-08] MEDS: ASCORBIC ACID 500 MG TABLET PO SCH ×2 (08:42→21:08)
[2020-12-08] MEDS: APIXABAN 5 MG TABLET PO SCH ×2 (08:42→21:08)
[2020-12-08] MEDS: FAMOTIDINE 20 MG TABLET PO SCH ×2 (08:42→09:03)
[2020-12-08] MEDS ORDERED: SODIUM CHLORIDE 0.9% 1,000 ML IV ONE (09:06)
[2020-12-08] MEDS: fentaNYL INJ 1,250 MCG in SODIUM CHLORIDE 0.9% 225 ML IV PRN ×2 (09:45→16:02)
[2020-12-08] MEDS: PHENYLEPHRINE DRIP 40 MG/250 ML PREMIX IV PRN (12:22)
[2020-12-08 12:34] LABS: ABG HCO3 24.4 MMOL/L (20-26); ABG Oxygen Saturation 97.8 % (95-100); ABG PH 7.219 (7.35-7.45); ABG TCO2 27.4 MMOL/L (23-27)
[2020-12-08 12:35] LABS: ABG PCO2 73.3 MM HG (35-48)
[2020-12-08] MEDS: PHENYLEPHRINE INJ 160 MG in SODIUM CHLORIDE 0.9% 234 ML IV PRN (18:28)
[2020-12-08] MEDS: guaiFENesin/DM ER 600-30 MG TABLET PO PRN (21:37)
[2020-12-08] MEDS: fentaNYL INJ 5,000 MCG in SODIUM CHLORIDE 0.9% 150 ML IV PRN (23:16)
[2020-12-09 04:29] LABS: ABG Base Excess -1.3 MMOL/L (-2.5-2.5); ABG HCO3 23.3 MMOL/L (20-26); ABG Oxygen Saturation 97.8 % (95-100); ABG TCO2 27.4 MMOL/L (23-27)
[2020-12-09 04:31] LABS: ABG PCO2 78.8 MM HG (35-48); ABG PH 7.178 (7.35-7.45)
[2020-12-09 04:44] LABS: Basophils % 0.1 % (0.0-0.8); Hematocrit 33.5 VOL% (35.7-47.0); Immature Granulocytes % 1.5 %; Immature Granulocytes Absolute 0.34 #; Lymphocytes % 4.4 % (21.3-54.2); Mean Corpuscular HGB Conc 31.3 GM/DL (32-36); Mean Corpuscular Volume 87.9 FL (87-102); Mean Platelet Volume 11.2 FL (9.6-12.0); Monocytes % 5.3 % (1.7-12.7); NRBC # 0.02 10*3/uL; Neutrophils % 88.7 % (38.7-73.9); Platelet Count 376 T/CUMM (130-400); Red Blood Count 3.81 MC/CUMM (3.8-5.5)
[2020-12-09 04:53] LABS: Hemoglobin 10.5 GM/DL (12.0-16.0); White Blood Count 23.1 T/CUMM (4-12)
[2020-12-09 04:57] LABS: Alanine Aminotransferase 23 U/L (13-56); Alkaline Phosphatase 85 U/L (45-117); Aspartate Amino Transferase 42 U/L (0-37); Bilirubin,Total < 0.39 MG/DL (0.20-1.00); Blood Urea Nitrogen 34 MG/DL (7-18); Calcium 8.2 MG/DL (8.5-10.1); Carbon Dioxide 26 MMOL/L (21-32); Estimated Glom Filtration Rate 21 ML/MIN; Glucose 127 MG/DL (74-106); Osmolality,Calculated 286.5 MOS/KG (273-304); Potassium 5.1 MMOL/L (3.5-5.1); Sodium 139 MMOL/L (136-145); Total Protein 6.1 G/DL (6.4-8.2)
[2020-12-09] MEDS: fentaNYL INJ 1,250 MCG in SODIUM CHLORIDE 0.9% 225 ML IV PRN (04:59)
[2020-12-09 05:00] LABS: Hypochromasia 1+; Lymphocytes 6 % (20-55); Microcytosis 1+; Ovalocytes Slight; Platelet Estimate Normal; Segmented Neutrophils 88 % (50-85); Total Cells Counted 100
[2020-12-09] MEDS ORDERED: SODIUM BICARBONATE 50 MEQ/50 ML VIAL IV ONE (05:20)
[2020-12-09] MEDS: fentaNYL INJ 5,000 MCG in SODIUM CHLORIDE 0.9% 150 ML IV PRN ×2 (05:31→18:56)
[2020-12-09] MEDS: ASCORBIC ACID 500 MG TABLET PO SCH ×2 (08:03→21:25)
[2020-12-09] MEDS: APIXABAN 5 MG TABLET PO SCH ×2 (08:03→21:26)
[2020-12-09] MEDS: ZINC GLUCONATE 50 MG TABLET PO SCH (08:03)
[2020-12-09] MEDS: AZITHROMYCIN 250 MG TABLET PO SCH (08:03)
[2020-12-09] MEDS: FAMOTIDINE 20 MG TABLET PO SCH (08:03)
[2020-12-09] MEDS: CHOLECALCIFEROL 1,000 UNIT TABLET PO SCH (08:03)
[2020-12-09] MEDS: CETIRIZINE 10 MG TABLET PO SCH (08:04)
[2020-12-09] MEDS: DEXAMETHASONE 10 MG/1 ML VIAL IV SCH (08:06)
[2020-12-09] MEDS: PHENYLEPHRINE INJ 160 MG in SODIUM CHLORIDE 0.9% 234 ML IV PRN (09:09)
[2020-12-09] MEDS ORDERED: SODIUM BICARBONATE 50 MEQ/50 ML SYRINGE IV ONE (10:58)
[2020-12-09] MEDS: SODIUM BICARB INJ 100 MEQ in DEXTROSE 5% 1,000 ML IV SCH ×2 (11:04→21:33)
[2020-12-09] MEDS: guaiFENesin/DM ER 600-30 MG TABLET PO PRN (21:25)
[2020-12-09] MEDS: MELATONIN 3 MG TABLET PO PRN (21:57)
[2020-12-10] MEDS: INSULIN REGULAR 100 UNIT/ML SUBCUT SCH ×4 (00:13→18:49)
[2020-12-10 04:40] LABS: Basophils % 0.1 % (0.0-0.8); Eosinophils % 0.1 % (0.00-10.9); Hematocrit 32.7 VOL% (35.7-47.0); Hemoglobin 9.7 GM/DL (12.0-16.0); Immature Granulocytes % 1.2 %; Lymphocytes # 1.2 10*3/uL (1.4-4.0); Lymphocytes % 7.4 % (21.3-54.2); Mean Corpuscular HGB Conc 29.7 GM/DL (32-36); Mean Corpuscular Volume 88.9 FL (87-102); Mean Platelet Volume 10.9 FL (9.6-12.0); NRBC # 0.03 10*3/uL; Neutrophils % 82.2 % (38.7-73.9); Platelet Count 316 T/CUMM (130-400); Red Blood Count 3.68 MC/CUMM (3.8-5.5); Red Cell Distribution Width 14.9 % (9.3-17.3); White Blood Count 16.5 T/CUMM (4-12)
[2020-12-10 04:48] LABS: ABG Base Excess -4.6 MMOL/L (-2.5-2.5); ABG HCO3 26.4 MMOL/L (20-26); ABG Oxygen Saturation 95.3 % (95-100); ABG PO2 93.1 MM HG (80-95); ABG TCO2 29.1 MMOL/L (23-27)
[2020-12-10 04:50] LABS: ABG PCO2 88.8 MM HG (35-48); ABG PH 7.091 (7.35-7.45)
[2020-12-10 05:05] LABS: Alanine Aminotransferase 16 U/L (13-56); Albumin 2.1 G/DL (3.4-5.0); Alkaline Phosphatase 73 U/L (45-117); Aspartate Amino Transferase 24 U/L (0-37); Bilirubin,Total < 0.39 MG/DL (0.20-1.00); Blood Urea Nitrogen 45 MG/DL (7-18); Calcium 8.3 MG/DL (8.5-10.1); Carbon Dioxide 31 MMOL/L (21-32); Estimated Glom Filtration Rate 17 ML/MIN; Ferritin 649.3 ng/ml (8-252); Glucose 172 MG/DL (74-106); Osmolality,Calculated 290.7 MOS/KG (273-304); Potassium 4.1 MMOL/L (3.5-5.1); Sodium 138 MMOL/L (136-145)
[2020-12-10] MEDS ORDERED: SODIUM BICARBONATE 50 MEQ/50 ML VIAL IV ONE ×2 (05:57→06:01)
[2020-12-10] MEDS: ZINC GLUCONATE 50 MG TABLET PO SCH (08:34)
[2020-12-10] MEDS: FAMOTIDINE 20 MG TABLET PO SCH (08:34)
[2020-12-10] MEDS: CHOLECALCIFEROL 1,000 UNIT TABLET PO SCH (08:35)
[2020-12-10] MEDS: ASCORBIC ACID 500 MG TABLET PO SCH ×2 (08:35→23:08)
[2020-12-10] MEDS: APIXABAN 5 MG TABLET PO SCH ×2 (08:36→23:08)
[2020-12-10] MEDS: CETIRIZINE 10 MG TABLET PO SCH (08:36)
[2020-12-10] MEDS: DEXAMETHASONE 10 MG/1 ML VIAL IV SCH (08:39)
[2020-12-10] MEDS: SODIUM BICARB INJ 100 MEQ in DEXTROSE 5% 1,000 ML IV SCH ×2 (08:41→17:56)
[2020-12-10 09:46] LABS: ABG Base Excess 9.7 MMOL/L (-2.5-2.5); ABG HCO3 33.4 MMOL/L (20-26); ABG Oxygen Saturation 98.7 % (95-100); ABG PH 7.313 (7.35-7.45); ABG TCO2 35.6 MMOL/L (23-27)
[2020-12-10 09:48] LABS: ABG PCO2 75.8 MM HG (35-48)
[2020-12-10] MEDS: PHENYLEPHRINE INJ 160 MG in SODIUM CHLORIDE 0.9% 234 ML IV PRN (17:54)
[2020-12-10] MEDS: fentaNYL INJ 5,000 MCG in SODIUM CHLORIDE 0.9% 150 ML IV PRN (18:51)
[2020-12-10] MEDS: MELATONIN 3 MG TABLET PO PRN (23:08)
[2020-12-11] MEDS: INSULIN REGULAR 100 UNIT/ML SUBCUT SCH ×4 (01:39→18:09)
[2020-12-11] MEDS: SODIUM BICARB INJ 100 MEQ in DEXTROSE 5% 1,000 ML IV SCH ×2 (03:48→07:30)
[2020-12-11 03:49] LABS: ABG Base Excess 15.1 MMOL/L (-2.5-2.5); ABG HCO3 42.7 MMOL/L (20-26); ABG Oxygen Saturation 97.1 % (95-100); ABG PH 7.374 (7.35-7.45); ABG PO2 107.9 MM HG (80-95)
[2020-12-11 03:53] LABS: ABG PCO2 74.9 MM HG (35-48)
[2020-12-11 03:57] LABS: Eosinophils # 0.1 10*3/uL (0.0-0.87); Eosinophils % 0.5 % (0.00-10.9); Hematocrit 28.4 VOL% (35.7-47.0); Hemoglobin 8.6 GM/DL (12.0-16.0); Immature Granulocytes % 0.7 %; Immature Granulocytes Absolute 0.09 #; Lymphocytes # 1.1 10*3/uL (1.4-4.0); Lymphocytes % 8.5 % (21.3-54.2); Mean Corpuscular HGB Conc 30.3 GM/DL (32-36); Mean Corpuscular Volume 86.1 FL (87-102); Mean Platelet Volume 10.9 FL (9.6-12.0); Monocytes % 10.7 % (1.7-12.7); NRBC # 0.04 10*3/uL; Neutrophils % 79.6 % (38.7-73.9); Platelet Count 266 T/CUMM (130-400); Red Cell Distribution Width 14.5 % (9.3-17.3)
[2020-12-11 04:36] LABS: Alanine Aminotransferase 15 U/L (13-56); Albumin 1.8 G/DL (3.4-5.0); Alkaline Phosphatase 64 U/L (45-117); Aspartate Amino Transferase 23 U/L (0-37); Bilirubin,Total < 0.39 MG/DL (0.20-1.00); Blood Urea Nitrogen 46 MG/DL (7-18); Calcium 8.1 MG/DL (8.5-10.1); Carbon Dioxide 40 MMOL/L (21-32); Estimated Glom Filtration Rate 25 ML/MIN; Ferritin 480.2 ng/ml (8-252); Glucose 130 MG/DL (74-106); Osmolality,Calculated 294.3 MOS/KG (273-304); Potassium 3.8 MMOL/L (3.5-5.1); Sodium 141 MMOL/L (136-145); Total Protein 5.3 G/DL (6.4-8.2)
[2020-12-11] MEDS: PHENYLEPHRINE INJ 160 MG in SODIUM CHLORIDE 0.9% 234 ML IV PRN (08:09)
[2020-12-11] MEDS: ASCORBIC ACID 500 MG TABLET PO SCH ×2 (09:00→22:31)
[2020-12-11] MEDS: SODIUM CHLOR 0.45% KCL 20 MEQ 20 MEQ/1,000 ML BAG IV SCH ×2 (09:00→18:09)
[2020-12-11] MEDS: CETIRIZINE 10 MG TABLET PO SCH (09:01)
[2020-12-11] MEDS: ZINC GLUCONATE 50 MG TABLET PO SCH (09:01)
[2020-12-11] MEDS: CHOLECALCIFEROL 1,000 UNIT TABLET PO SCH (09:01)
[2020-12-11] MEDS: FAMOTIDINE 20 MG TABLET PO SCH (09:03)
[2020-12-11] MEDS: DEXAMETHASONE 10 MG/1 ML VIAL IV SCH (09:03)
[2020-12-11] MEDS: fentaNYL INJ 5,000 MCG in SODIUM CHLORIDE 0.9% 150 ML IV PRN (12:04)
[2020-12-11] MEDS: APIXABAN 5 MG TABLET PO SCH ×2 (14:44→22:31)
[2020-12-11] MEDS: guaiFENesin/DM ER 600-30 MG TABLET PO PRN (22:30)
[2020-12-11] MEDS: POTASSIUM CHLORIDE 20 MEQ TABLET PO PRN (22:31)
[2020-12-12] MEDS: fentaNYL INJ 5,000 MCG in SODIUM CHLORIDE 0.9% 150 ML IV PRN ×2 (01:06→16:12)
[2020-12-12] MEDS: INSULIN REGULAR 100 UNIT/ML SUBCUT SCH ×4 (01:58→18:21)
[2020-12-12] MEDS: SODIUM CHLOR 0.45% KCL 20 MEQ 20 MEQ/1,000 ML BAG IV SCH (04:09)
[2020-12-12] MEDS: ALPRAZolam 0.5 MG TABLET PO PRN (05:35)
[2020-12-12 05:46] LABS: ABG HCO3 36.8 MMOL/L (20-26); ABG Oxygen Saturation 97.7 % (95-100); ABG PH 7.363 (7.35-7.45); ABG TCO2 38.1 MMOL/L (23-27)
[2020-12-12 06:30] LABS: Calcium 8.5 MG/DL (8.5-10.1); Potassium 4.6 MMOL/L (3.5-5.1)
[2020-12-12 07:50] LABS: Basophils % 0.1 % (0.0-0.8); Eosinophils # 0.1 10*3/uL (0.0-0.87); Eosinophils % 0.8 % (0.00-10.9); Hematocrit 28.4 VOL% (35.7-47.0); Hemoglobin 8.6 GM/DL (12.0-16.0); Immature Granulocytes % 0.8 %; Lymphocytes # 1.3 10*3/uL (1.4-4.0); Lymphocytes % 9.8 % (21.3-54.2); Mean Corpuscular HGB Conc 30.3 GM/DL (32-36); Mean Corpuscular Volume 87.7 FL (87-102); Mean Platelet Volume 11.5 FL (9.6-12.0); NRBC # 0.02 10*3/uL; Neutrophils % 77.5 % (38.7-73.9); Platelet Count 301 T/CUMM (130-400); Red Blood Count 3.24 MC/CUMM (3.8-5.5); Red Cell Distribution Width 14.7 % (9.3-17.3); White Blood Count 13.2 T/CUMM (4-12)
[2020-12-12] MEDS: ZINC GLUCONATE 50 MG TABLET PO SCH (08:58)
[2020-12-12] MEDS: CHOLECALCIFEROL 1,000 UNIT TABLET PO SCH (08:58)
[2020-12-12] MEDS: DEXAMETHASONE 10 MG/1 ML VIAL IV SCH (08:58)
[2020-12-12] MEDS: FAMOTIDINE 20 MG TABLET PO SCH (08:59)
[2020-12-12] MEDS: ASCORBIC ACID 500 MG TABLET PO SCH ×2 (08:59→20:36)
[2020-12-12] MEDS: CETIRIZINE 10 MG TABLET PO SCH (08:59)
[2020-12-12] MEDS: APIXABAN 5 MG TABLET PO SCH ×2 (09:59→20:35)
[2020-12-12] MEDS: FAMOTIDINE 20 MG/2 ML VIAL IV SCH (13:33)
[2020-12-12] MEDS: MIDAZOLAM 100 MG in SODIUM CHLORIDE 0.9% 80 ML IV PRN (14:11)
[2020-12-13] MEDS: INSULIN REGULAR 100 UNIT/ML SUBCUT SCH ×4 (01:05→18:37)
[2020-12-13 04:45] LABS: ABG Base Excess 13.9 MMOL/L (-2.5-2.5); ABG HCO3 37.7 MMOL/L (20-26); ABG Oxygen Saturation 98.7 % (95-100); ABG TCO2 38.9 MMOL/L (23-27)
[2020-12-13 04:47] LABS: ABG PCO2 72.3 MM HG (35-48)
[2020-12-13 04:50] LABS: Basophils % 0.1 % (0.0-0.8); Eosinophils # 0.2 10*3/uL (0.0-0.87); Eosinophils % 1.4 % (0.00-10.9); Hematocrit 26.7 VOL% (35.7-47.0); Immature Granulocytes % 0.8 %; Lymphocytes # 1.3 10*3/uL (1.4-4.0); Lymphocytes % 9.5 % (21.3-54.2); Mean Corpuscular Volume 87.8 FL (87-102); Mean Platelet Volume 10.3 FL (9.6-12.0); Monocytes % 8.6 % (1.7-12.7); Neutrophils % 79.6 % (38.7-73.9); Platelet Count 262 T/CUMM (130-400); Red Blood Count 3.04 MC/CUMM (3.8-5.5); Red Cell Distribution Width 14.5 % (9.3-17.3); White Blood Count 13.3 T/CUMM (4-12)
[2020-12-13 05:09] LABS: Ferritin 530.9 ng/mL (8-252); Osmolality,Calculated 292.1 MOS/KG (273-304); Potassium 4.8 MMOL/L (3.5-5.1)
[2020-12-13] MEDS: MIDAZOLAM 100 MG in SODIUM CHLORIDE 0.9% 80 ML IV PRN (05:10)
[2020-12-13] MEDS: fentaNYL INJ 5,000 MCG in SODIUM CHLORIDE 0.9% 150 ML IV PRN ×2 (05:15→20:29)
[2020-12-13 05:36] LABS: Lymphocytes 13 % (20-55); Segmented Neutrophils 79 % (50-85); Total Cells Counted 100
[2020-12-13 05:37] LABS: Hypochromasia 1+; Microcytosis 1+; Platelet Estimate Adequate
[2020-12-13] MEDS: APIXABAN 5 MG TABLET PO SCH ×2 (09:15→21:04)
[2020-12-13] MEDS: DEXAMETHASONE 10 MG/1 ML VIAL IV SCH (09:15)
[2020-12-13] MEDS: CETIRIZINE 10 MG TABLET PO SCH (09:16)
[2020-12-13] MEDS: CHOLECALCIFEROL 1,000 UNIT TABLET PO SCH (09:16)
[2020-12-13] MEDS: ZINC GLUCONATE 50 MG TABLET PO SCH (09:16)
[2020-12-13] MEDS: ASCORBIC ACID 500 MG TABLET PO SCH ×2 (09:16→21:04)
[2020-12-13] MEDS: FAMOTIDINE 20 MG/2 ML VIAL IV SCH (12:31)
[2020-12-13 14:00] LABS: ABG HCO3 37.8 MMOL/L (20-26); ABG PH 7.379 (7.35-7.45); ABG TCO2 38.7 MMOL/L (23-27)
[2020-12-13] MEDS: PHENYLEPHRINE INJ 160 MG in SODIUM CHLORIDE 0.9% 234 ML IV PRN (22:29)
[2020-12-14 04:52] LABS: ABG Base Excess 14.2 MMOL/L (-2.5-2.5); ABG Oxygen Saturation 95.7 % (95-100); ABG PCO2 65.3 MM HG (35-48); ABG PH 7.408 (7.35-7.45); ABG PO2 79.6 MM HG (80-95); ABG TCO2 38.5 MMOL/L (23-27)
[2020-12-14 05:00] LABS: Basophils % 0.1 % (0.0-0.8); Eosinophils # 0.2 10*3/uL (0.0-0.87); Eosinophils % 1.2 % (0.00-10.9); Hematocrit 25.6 VOL% (35.7-47.0); Hemoglobin 7.7 GM/DL (12.0-16.0); Immature Granulocytes % 1.3 %; Immature Granulocytes Absolute 0.16 #; Lymphocytes # 1.3 10*3/uL (1.4-4.0); Mean Corpuscular HGB Conc 30.1 GM/DL (32-36); Mean Corpuscular Volume 87.7 FL (87-102); Mean Platelet Volume 11.1 FL (9.6-12.0); Monocytes % 10.4 % (1.7-12.7); Platelet Count 286 T/CUMM (130-400); Red Blood Count 2.92 MC/CUMM (3.8-5.5); Red Cell Distribution Width 14.5 % (9.3-17.3); White Blood Count 12.2 T/CUMM (4-12)
[2020-12-14 05:17] LABS: Ferritin 897.7 ng/mL (8-252); Osmolality,Calculated 300.7 MOS/KG (273-304); Potassium 5.2 MMOL/L (3.5-5.1)
[2020-12-14] MEDS: INSULIN REGULAR 100 UNIT/ML SUBCUT SCH ×4 (05:25→17:44)
[2020-12-14] MEDS ORDERED: DEXAMETHASONE 10 MG/1 ML VIAL IV SCH (09:00)
[2020-12-14] MEDS: APIXABAN 5 MG TABLET PO SCH ×2 (09:37→20:41)
[2020-12-14] MEDS: CHOLECALCIFEROL 1,000 UNIT TABLET PO SCH (09:38)
[2020-12-14] MEDS: ASCORBIC ACID 500 MG TABLET PO SCH ×2 (09:38→20:41)
[2020-12-14] MEDS: CETIRIZINE 10 MG TABLET PO SCH (09:38)
[2020-12-14] MEDS: ZINC GLUCONATE 50 MG TABLET PO SCH (09:38)
[2020-12-14] MEDS: ACETAMINOPHEN 325 MG TABLET PO PRN (09:38)
[2020-12-14 10:08] LABS: Bacteria,Urine Occasional /HPF (Few); Bilirubin,Urine Negative (Negative); Blood, Urine Moderate mg/dL (Negative); Glucose,Urine (UA) Negative (Negative); Hyaline Casts,Urine 3 /LPF (0-3); Ketones,Urine Negative (Negative); Mucus,Urine Occasional /LPF (Occasional); Nitrite,Urine Negative (Negative); Protein,Urine Negative; RBC,Urine 44 /HPF (0-4); Squamous Epithelial Cell,Urine Occasional /HPF (0-10); Urine Appearance Slightly Hazy (Clear); Urine Color Yellow (Yellow); Urine Specific Gravity 1.014 (1.001-1.035); Urine Urobilinogen < 2.0 EU/DL (0.2-1.0)
[2020-12-14] MEDS: fentaNYL INJ 5,000 MCG in SODIUM CHLORIDE 0.9% 150 ML IV PRN (12:21)
[2020-12-14] MEDS: FAMOTIDINE 20 MG/2 ML VIAL IV SCH (13:25)
[2020-12-14 14:27] LABS: Calcium 9.2 MG/DL (8.5-10.1); Potassium 5.3 MMOL/L (3.5-5.1)
[2020-12-14] MEDS ORDERED: MEROPENEM 500 MG in SODIUM CHLORIDE 0.9% 100 ML IV SCH (15:00)
[2020-12-14] MEDS: MEROPENEM 500 MG in SODIUM CHLORIDE 0.9% 100 ML IV SCH ×2 (15:20→20:42)
[2020-12-14] MEDS: methylPREDNISolone SOD SUC 40 MG/1 ML VIAL IV SCH ×2 (15:20→23:09)
[2020-12-14] MEDS: MIDAZOLAM 100 MG in SODIUM CHLORIDE 0.9% 80 ML IV PRN (17:09)
[2020-12-15] MEDS: INSULIN REGULAR 100 UNIT/ML SUBCUT SCH ×4 (00:30→18:09)
[2020-12-15] MEDS: MEROPENEM 500 MG in SODIUM CHLORIDE 0.9% 100 ML IV SCH ×4 (02:33→21:37)
[2020-12-15 04:46] LABS: ABG Base Excess 8.2 MMOL/L (-2.5-2.5); ABG Oxygen Saturation 96.5 % (95-100); ABG PH 7.341 (7.35-7.45); ABG PO2 98.2 MM HG (80-95); ABG TCO2 32.4 MMOL/L (23-27)
[2020-12-15 04:49] LABS: ABG PCO2 69.1 MM HG (35-48)
[2020-12-15 04:54] LABS: Basophils % 0.1 % (0.0-0.8); Hematocrit 26.9 VOL% (35.7-47.0); Hemoglobin 7.9 GM/DL (12.0-16.0); Immature Granulocytes % 1.1 %; Immature Granulocytes Absolute 0.11 #; Lymphocytes # 0.7 10*3/uL (1.4-4.0); Lymphocytes % 7.1 % (21.3-54.2); Mean Corpuscular HGB Conc 29.4 GM/DL (32-36); Mean Corpuscular Volume 89.7 FL (87-102); Mean Platelet Volume 11.3 FL (9.6-12.0); Monocytes % 6.4 % (1.7-12.7); Neutrophils % 85.3 % (38.7-73.9); Platelet Count 270 T/CUMM (130-400); Red Cell Distribution Width 14.3 % (9.3-17.3); White Blood Count 10.4 T/CUMM (4-12)
[2020-12-15] MEDS: fentaNYL INJ 5,000 MCG in SODIUM CHLORIDE 0.9% 150 ML IV PRN ×2 (05:22→21:48)
[2020-12-15 05:24] LABS: Calcium 9.4 MG/DL (8.5-10.1); Potassium 5.9 MMOL/L (3.5-5.1)
[2020-12-15 05:29] LABS: Ferritin 1372.2 ng/mL (8-252)
[2020-12-15] MEDS: methylPREDNISolone SOD SUC 40 MG/1 ML VIAL IV SCH ×3 (06:13→23:08)
[2020-12-15] MEDS: CHOLECALCIFEROL 1,000 UNIT TABLET PO SCH (08:08)
[2020-12-15] MEDS: APIXABAN 5 MG TABLET PO SCH ×2 (08:08→21:36)
[2020-12-15] MEDS: ASCORBIC ACID 500 MG TABLET PO SCH ×2 (08:08→21:37)
[2020-12-15] MEDS: CETIRIZINE 10 MG TABLET PO SCH (08:08)
[2020-12-15] MEDS ORDERED: SODIUM POLYSTYRENE SULFATE 15 GM/60 ML BOTTLE PO ONE (09:46)
[2020-12-15] MEDS ORDERED: VANCOMYCIN INJ 1,750 MG in SODIUM CHLORIDE 0.9% 500 ML IV ONE (12:00)
[2020-12-15] MEDS: FAMOTIDINE 20 MG/2 ML VIAL IV SCH (12:57)
[2020-12-15 14:36] LABS: Calcium 8.9 MG/DL (8.5-10.1); Osmolality,Calculated 313.4 MOS/KG (273-304); Potassium 5.2 MMOL/L (3.5-5.1)
[2020-12-16] MEDS: INSULIN REGULAR 100 UNIT/ML SUBCUT SCH ×4 (00:01→17:38)
[2020-12-16] MEDS: MEROPENEM 500 MG in SODIUM CHLORIDE 0.9% 100 ML IV SCH ×2 (03:40→08:46)
[2020-12-16] MEDS: MIDAZOLAM 100 MG in SODIUM CHLORIDE 0.9% 80 ML IV PRN (04:37)
[2020-12-16 05:09] LABS: ABG HCO3 35.5 MMOL/L (20-26); ABG Oxygen Saturation 98.4 % (95-100); ABG PCO2 68.5 MM HG (35-48); ABG PH 7.333 (7.35-7.45); ABG TCO2 37.7 MMOL/L (23-27)
[2020-12-16 05:12] LABS: Hematocrit 30.8 VOL% (35.7-47.0); Immature Granulocytes % 1.8 %; Immature Granulocytes Absolute 0.22 #; Lymphocytes # 0.7 10*3/uL (1.4-4.0); Lymphocytes % 5.9 % (21.3-54.2); Mean Corpuscular HGB Conc 29.2 GM/DL (32-36); Mean Corpuscular Volume 89.8 FL (87-102); Mean Platelet Volume 11.4 FL (9.6-12.0); Monocytes % 10.8 % (1.7-12.7); Neutrophils % 81.5 % (38.7-73.9); Platelet Count 296 T/CUMM (130-400); Red Blood Count 3.43 MC/CUMM (3.8-5.5); Red Cell Distribution Width 14.3 % (9.3-17.3)
[2020-12-16 05:49] LABS: Calcium 9.3 MG/DL (8.5-10.1); Ferritin 1688.5 ng/mL (8-252); Osmolality,Calculated 315.4 MOS/KG (273-304); Potassium 4.8 MMOL/L (3.5-5.1)
[2020-12-16] MEDS: methylPREDNISolone SOD SUC 40 MG/1 ML VIAL IV SCH ×2 (06:13→15:39)
[2020-12-16] MEDS: ASCORBIC ACID 500 MG TABLET PO SCH ×2 (08:42→20:48)
[2020-12-16] MEDS: CHOLECALCIFEROL 1,000 UNIT TABLET PO SCH (08:42)
[2020-12-16] MEDS: CETIRIZINE 10 MG TABLET PO SCH (08:42)
[2020-12-16] MEDS: APIXABAN 5 MG TABLET PO SCH ×2 (08:48→20:47)
[2020-12-16] MEDS: fentaNYL INJ 5,000 MCG in SODIUM CHLORIDE 0.9% 150 ML IV PRN (10:17)
[2020-12-16] MEDS: VANCOMYCIN INJ 1,750 MG in SODIUM CHLORIDE 0.9% 500 ML IV SCH ×2 (10:48→20:48)
[2020-12-16] MEDS: FAMOTIDINE 20 MG/2 ML VIAL IV SCH (13:33)
[2020-12-16] MEDS: cefTRIAXone 1,000 MG in SODIUM CHLORIDE 0.9% 100 ML IV SCH (13:40)
[2020-12-17] MEDS: methylPREDNISolone SOD SUC 40 MG/1 ML VIAL IV SCH ×3 (00:05→18:38)
[2020-12-17] MEDS: INSULIN REGULAR 100 UNIT/ML SUBCUT SCH ×4 (00:20→17:45)
[2020-12-17] MEDS: fentaNYL INJ 5,000 MCG in SODIUM CHLORIDE 0.9% 150 ML IV PRN (01:01)
[2020-12-17] MEDS: MIDAZOLAM 100 MG in SODIUM CHLORIDE 0.9% 80 ML IV PRN (03:05)
[2020-12-17 03:47] LABS: ABG Base Excess 6.5 MMOL/L (-2.5-2.5); ABG HCO3 30.4 MMOL/L (20-26); ABG PCO2 61.9 MM HG (35-48); ABG PH 7.343 (7.35-7.45); ABG PO2 97.3 MM HG (80-95); ABG TCO2 31.5 MMOL/L (23-27)
[2020-12-17 04:12] LABS: Basophils % 0.1 % (0.0-0.8); Eosinophils # 0.1 10*3/uL (0.0-0.87); Hematocrit 27.7 VOL% (35.7-47.0); Hemoglobin 8.1 GM/DL (12.0-16.0); Immature Granulocytes Absolute 0.11 #; Lymphocytes # 0.7 10*3/uL (1.4-4.0); Lymphocytes % 6.3 % (21.3-54.2); Mean Corpuscular HGB Conc 29.2 GM/DL (32-36); Mean Corpuscular Volume 90.2 FL (87-102); Mean Platelet Volume 11.5 FL (9.6-12.0); Monocytes % 9.8 % (1.7-12.7); Neutrophils % 81.8 % (38.7-73.9); Platelet Count 248 T/CUMM (130-400); Red Blood Count 3.07 MC/CUMM (3.8-5.5); Red Cell Distribution Width 14.4 % (9.3-17.3); White Blood Count 10.6 T/CUMM (4-12)
[2020-12-17 04:43] LABS: Calcium 8.9 MG/DL (8.5-10.1); Ferritin 646.1 ng/mL (8-252); Osmolality,Calculated 319.3 MOS/KG (273-304); Potassium 4.3 MMOL/L (3.5-5.1)
[2020-12-17] MEDS: CETIRIZINE 10 MG TABLET PO SCH (08:12)
[2020-12-17] MEDS: APIXABAN 5 MG TABLET PO SCH ×2 (08:12→20:45)
[2020-12-17] MEDS: ASCORBIC ACID 500 MG TABLET PO SCH ×2 (08:13→20:45)
[2020-12-17] MEDS: CHOLECALCIFEROL 1,000 UNIT TABLET PO SCH (08:13)
[2020-12-17] MEDS: VANCOMYCIN INJ 1,750 MG in SODIUM CHLORIDE 0.9% 500 ML IV SCH ×2 (08:13→23:09)
[2020-12-17] MEDS: cefTRIAXone 1,000 MG in SODIUM CHLORIDE 0.9% 100 ML IV SCH (11:42)
[2020-12-17] MEDS: LACTULOSE 20 GM/30 ML UDCUP PO SCH ×2 (11:45→20:46)
[2020-12-17] MEDS: FAMOTIDINE 20 MG/2 ML VIAL IV SCH (13:07)
[2020-12-18] MEDS: fentaNYL INJ 5,000 MCG in SODIUM CHLORIDE 0.9% 150 ML IV PRN ×2 (00:07→16:22)
[2020-12-18] MEDS: INSULIN REGULAR 100 UNIT/ML SUBCUT SCH ×4 (00:50→17:57)
[2020-12-18 03:55] LABS: Basophils % 0.1 % (0.0-0.8); Eosinophils # 0.2 10*3/uL (0.0-0.87); Eosinophils % 1.7 % (0.00-10.9); Hematocrit 29.3 VOL% (35.7-47.0); Hemoglobin 8.7 GM/DL (12.0-16.0); Immature Granulocytes % 0.9 %; Immature Granulocytes Absolute 0.11 #; Lymphocytes # 0.8 10*3/uL (1.4-4.0); Lymphocytes % 6.2 % (21.3-54.2); Mean Corpuscular HGB Conc 29.7 GM/DL (32-36); Mean Corpuscular Volume 88.3 FL (87-102); Mean Platelet Volume 11.8 FL (9.6-12.0); Monocytes % 9.2 % (1.7-12.7); Neutrophils % 81.9 % (38.7-73.9); Platelet Count 253 T/CUMM (130-400); Red Blood Count 3.32 MC/CUMM (3.8-5.5); Red Cell Distribution Width 14.1 % (9.3-17.3); White Blood Count 12.2 T/CUMM (4-12)
[2020-12-18 04:07] LABS: ABG Base Excess 5.2 MMOL/L (-2.5-2.5); ABG HCO3 31.9 MMOL/L (20-26); ABG Oxygen Saturation 94.7 % (95-100); ABG PCO2 59.8 MM HG (35-48); ABG PH 7.345 (7.35-7.45); ABG PO2 82.9 MM HG (80-95); ABG TCO2 33.7 MMOL/L (23-27); Allen Test Positive; Pt O2 Delivery Device Ventilator
[2020-12-18 04:09] LABS: Calcium 9.1 MG/DL (8.5-10.1); Osmolality,Calculated 309.8 MOS/KG (273-304)
[2020-12-18] MEDS: methylPREDNISolone SOD SUC 40 MG/1 ML VIAL IV SCH ×2 (06:32→18:45)
[2020-12-18] MEDS: MIDAZOLAM 100 MG in SODIUM CHLORIDE 0.9% 80 ML IV PRN (07:34)
[2020-12-18] MEDS: LACTULOSE 20 GM/30 ML UDCUP PO SCH ×2 (08:33→21:35)
[2020-12-18] MEDS: CHOLECALCIFEROL 1,000 UNIT TABLET PO SCH (08:36)
[2020-12-18] MEDS: ASCORBIC ACID 500 MG TABLET PO SCH ×2 (08:36→21:35)
[2020-12-18] MEDS: APIXABAN 5 MG TABLET PO SCH ×2 (08:37→21:35)
[2020-12-18] MEDS: CETIRIZINE 10 MG TABLET PO SCH (08:38)
[2020-12-18] MEDS ORDERED: FUROSEMIDE 40 MG/4 ML VIAL IV ONE (10:46)
[2020-12-18] MEDS: cefTRIAXone 1,000 MG in SODIUM CHLORIDE 0.9% 100 ML IV SCH (12:47)
[2020-12-18] MEDS: FAMOTIDINE 20 MG/2 ML VIAL IV SCH (12:53)
[2020-12-19] MEDS: INSULIN REGULAR 100 UNIT/ML SUBCUT SCH ×4 (01:33→18:00)
[2020-12-19] MEDS: fentaNYL INJ 5,000 MCG in SODIUM CHLORIDE 0.9% 150 ML IV PRN ×2 (04:50→20:11)
[2020-12-19 05:00] LABS: Basophils % 0.1 % (0.0-0.8); Eosinophils # 0.4 10*3/uL (0.0-0.87); Eosinophils % 2.8 % (0.00-10.9); Hematocrit 30.3 VOL% (35.7-47.0); Hemoglobin 9.2 GM/DL (12.0-16.0); Immature Granulocytes % 1.2 %; Immature Granulocytes Absolute 0.17 #; Lymphocytes # 0.9 10*3/uL (1.4-4.0); Lymphocytes % 6.3 % (21.3-54.2); Mean Corpuscular HGB Conc 30.4 GM/DL (32-36); Mean Corpuscular Volume 87.6 FL (87-102); Mean Platelet Volume 11.4 FL (9.6-12.0); Monocytes % 7.1 % (1.7-12.7); Neutrophils % 82.5 % (38.7-73.9); Platelet Count 263 T/CUMM (130-400); Red Blood Count 3.46 MC/CUMM (3.8-5.5); White Blood Count 13.8 T/CUMM (4-12)
[2020-12-19 05:06] LABS: ABG Base Excess 5.9 MMOL/L (-2.5-2.5); ABG HCO3 32.5 MMOL/L (20-26); ABG Oxygen Saturation 90.8 % (95-100); ABG PCO2 58.8 MM HG (35-48); ABG PH 7.361 (7.35-7.45); ABG PO2 66.5 MM HG (80-95); ABG TCO2 34.4 MMOL/L (23-27)
[2020-12-19 05:20] LABS: Albumin 2.1 G/DL (3.4-5.0); Bilirubin,Total 0.6 MG/DL (0.20-1.00); Ferritin 377.8 ng/mL (8-252); Osmolality,Calculated 298.3 MOS/KG (273-304); Potassium 3.8 MMOL/L (3.5-5.1); Total Protein 5.9 G/DL (6.4-8.2)
[2020-12-19 05:37] LABS: Hypochromasia 1+; Microcytosis 1+
[2020-12-19 05:38] LABS: Ovalocytes Slight; Platelet Estimate Normal
[2020-12-19] MEDS: methylPREDNISolone SOD SUC 40 MG/1 ML VIAL IV SCH ×2 (06:25→17:35)
[2020-12-19] MEDS: MIDAZOLAM 100 MG in SODIUM CHLORIDE 0.9% 80 ML IV PRN (08:45)
[2020-12-19] MEDS: VANCOMYCIN INJ 1,750 MG in SODIUM CHLORIDE 0.9% 500 ML IV SCH (09:15)
[2020-12-19] MEDS: LACTULOSE 20 GM/30 ML UDCUP PO SCH ×2 (09:20→21:14)
[2020-12-19] MEDS: APIXABAN 5 MG TABLET PO SCH ×2 (09:20→21:14)
[2020-12-19] MEDS: CETIRIZINE 10 MG TABLET PO SCH (09:20)
[2020-12-19] MEDS: ASCORBIC ACID 500 MG TABLET PO SCH ×2 (09:20→21:14)
[2020-12-19] MEDS: CHOLECALCIFEROL 1,000 UNIT TABLET PO SCH (09:20)
[2020-12-19] MEDS: FAMOTIDINE 20 MG/2 ML VIAL IV SCH (12:00)
[2020-12-19] MEDS: cefTRIAXone 1,000 MG in SODIUM CHLORIDE 0.9% 100 ML IV SCH (12:00)
[2020-12-20] MEDS: INSULIN REGULAR 100 UNIT/ML SUBCUT SCH ×4 (01:49→18:00)
[2020-12-20] MEDS: MIDAZOLAM 100 MG in SODIUM CHLORIDE 0.9% 80 ML IV PRN ×2 (02:25→19:45)
[2020-12-20 03:38] LABS: ABG Base Excess 4.4 MMOL/L (-2.5-2.5); ABG HCO3 28.3 MMOL/L (20-26); ABG Oxygen Saturation 92.3 % (95-100); ABG PCO2 63.5 MM HG (35-48); ABG PH 7.313 (7.35-7.45); ABG PO2 69.1 MM HG (80-95); ABG TCO2 29.8 MMOL/L (23-27); Allen Test Positive; Pt O2 Delivery Device Ventilator
[2020-12-20 04:27] LABS: Basophils % 0.1 % (0.0-0.8); Eosinophils # 0.4 10*3/uL (0.0-0.87); Eosinophils % 2.6 % (0.00-10.9); Hematocrit 30.9 VOL% (35.7-47.0); Hemoglobin 9.4 GM/DL (12.0-16.0); Immature Granulocytes % 0.9 %; Immature Granulocytes Absolute 0.13 #; Lymphocytes # 0.7 10*3/uL (1.4-4.0); Lymphocytes % 4.8 % (21.3-54.2); Mean Corpuscular HGB Conc 30.4 GM/DL (32-36); Mean Corpuscular Volume 88.5 FL (87-102); Mean Platelet Volume 12.1 FL (9.6-12.0); Monocytes % 4.8 % (1.7-12.7); Neutrophils % 86.8 % (38.7-73.9); Platelet Count 299 T/CUMM (130-400); Red Blood Count 3.49 MC/CUMM (3.8-5.5); Red Cell Distribution Width 14.2 % (9.3-17.3); White Blood Count 14.2 T/CUMM (4-12)
[2020-12-20 04:46] LABS: Eosinophils 1 % (0-10); Hypochromasia 1+; Lymphocytes 7 % (20-55); Microcytosis 1+; Platelet Estimate Adequate; Segmented Neutrophils 89 % (50-85); Total Cells Counted 100
[2020-12-20 04:55] LABS: Osmolality,Calculated 297.3 MOS/KG (273-304); Potassium 3.7 MMOL/L (3.5-5.1)
[2020-12-20] MEDS: methylPREDNISolone SOD SUC 40 MG/1 ML VIAL IV SCH ×2 (06:05→18:10)
[2020-12-20] MEDS: LACTULOSE 20 GM/30 ML UDCUP PO SCH ×2 (09:00→21:26)
[2020-12-20] MEDS: VANCOMYCIN INJ 1,750 MG in SODIUM CHLORIDE 0.9% 500 ML IV SCH (09:15)
[2020-12-20] MEDS: CETIRIZINE 10 MG TABLET PO SCH (09:20)
[2020-12-20] MEDS: APIXABAN 5 MG TABLET PO SCH ×2 (09:20→21:26)
[2020-12-20] MEDS: CHOLECALCIFEROL 1,000 UNIT TABLET PO SCH (09:20)
[2020-12-20] MEDS: ASCORBIC ACID 500 MG TABLET PO SCH ×2 (09:20→21:26)
[2020-12-20] MEDS: fentaNYL INJ 5,000 MCG in SODIUM CHLORIDE 0.9% 150 ML IV PRN ×2 (09:30→23:46)
[2020-12-20] MEDS: cefTRIAXone 1,000 MG in SODIUM CHLORIDE 0.9% 100 ML IV SCH (12:20)
[2020-12-20] MEDS: FAMOTIDINE 20 MG/2 ML VIAL IV SCH (12:20)
[2020-12-21] MEDS: INSULIN REGULAR 100 UNIT/ML SUBCUT SCH ×4 (00:11→18:25)
[2020-12-21 03:34] LABS: Basophils % 0.1 % (0.0-0.8); Eosinophils # 0.1 10*3/uL (0.0-0.87); Eosinophils % 1.1 % (0.00-10.9); Hematocrit 27.9 VOL% (35.7-47.0); Hemoglobin 8.3 GM/DL (12.0-16.0); Immature Granulocytes Absolute 0.12 #; Lymphocytes # 0.5 10*3/uL (1.4-4.0); Mean Corpuscular HGB Conc 29.7 GM/DL (32-36); Mean Corpuscular Volume 89.1 FL (87-102); Mean Platelet Volume 12.1 FL (9.6-12.0); Monocytes % 3.8 % (1.7-12.7); Platelet Count 296 T/CUMM (130-400); Red Blood Count 3.13 MC/CUMM (3.8-5.5); Red Cell Distribution Width 14.5 % (9.3-17.3); White Blood Count 11.5 T/CUMM (4-12)
[2020-12-21 03:54] LABS: ABG Base Excess 4.1 MMOL/L (-2.5-2.5); ABG HCO3 28.1 MMOL/L (20-26); ABG Oxygen Saturation 96.5 % (95-100); ABG PCO2 62.3 MM HG (35-48); ABG PH 7.314 (7.35-7.45); ABG TCO2 29.4 MMOL/L (23-27)
[2020-12-21 03:55] LABS: Calcium 8.9 MG/DL (8.5-10.1); Osmolality,Calculated 298.3 MOS/KG (273-304); Potassium 3.7 MMOL/L (3.5-5.1)
[2020-12-21 04:00] LABS: Band Neutrophils 1 % (0-10); Eosinophils 2 % (0-10); Lymphocytes 6 % (20-55); Segmented Neutrophils 86 % (50-85); Total Cells Counted 100
[2020-12-21 04:01] LABS: Hypochromasia 1+; Microcytosis 1+; Platelet Estimate Normal
[2020-12-21] MEDS: methylPREDNISolone SOD SUC 40 MG/1 ML VIAL IV SCH ×2 (06:42→19:10)
[2020-12-21] MEDS: APIXABAN 5 MG TABLET PO SCH ×2 (09:30→20:52)
[2020-12-21] MEDS: ASCORBIC ACID 500 MG TABLET PO SCH ×2 (09:30→20:52)
[2020-12-21] MEDS: LACTULOSE 20 GM/30 ML UDCUP PO SCH ×2 (09:30→20:52)
[2020-12-21] MEDS: CETIRIZINE 10 MG TABLET PO SCH (09:30)
[2020-12-21] MEDS: CHOLECALCIFEROL 1,000 UNIT TABLET PO SCH (09:30)
[2020-12-21] MEDS: VANCOMYCIN INJ 1,750 MG in SODIUM CHLORIDE 0.9% 500 ML IV SCH (09:31)
[2020-12-21] MEDS: FAMOTIDINE 20 MG/2 ML VIAL IV SCH (12:35)
[2020-12-21] MEDS: cefTRIAXone 1,000 MG in SODIUM CHLORIDE 0.9% 100 ML IV SCH (12:35)
[2020-12-21] MEDS ORDERED: FUROSEMIDE 40 MG/4 ML VIAL IV ONE (14:15)
[2020-12-21] MEDS: fentaNYL INJ 5,000 MCG in SODIUM CHLORIDE 0.9% 150 ML IV PRN (14:22)
[2020-12-21] MEDS: MIDAZOLAM 100 MG in SODIUM CHLORIDE 0.9% 80 ML IV PRN (14:23)
[2020-12-22] MEDS: INSULIN REGULAR 100 UNIT/ML SUBCUT SCH ×4 (00:21→18:28)
[2020-12-22 04:28] LABS: ABG Base Excess 3.7 MMOL/L (-2.5-2.5); ABG HCO3 30.5 MMOL/L (20-26); ABG Oxygen Saturation 97.2 % (95-100); ABG PCO2 58.6 MM HG (35-48); ABG PH 7.334 (7.35-7.45); ABG PO2 101.7 MM HG (80-95); ABG TCO2 32.3 MMOL/L (23-27); Allen Test Positive; Pt O2 Delivery Device Ventilator
[2020-12-22] MEDS: MIDAZOLAM 100 MG in SODIUM CHLORIDE 0.9% 80 ML IV PRN ×2 (04:50→19:01)
[2020-12-22 05:40] LABS: Basophils % 0.2 % (0.0-0.8); Eosinophils # 0.3 10*3/uL (0.0-0.87); Eosinophils % 2.1 % (0.00-10.9); Hematocrit 26.3 VOL% (35.7-47.0); Immature Granulocytes Absolute 0.13 #; Lymphocytes # 0.6 10*3/uL (1.4-4.0); Lymphocytes % 4.5 % (21.3-54.2); Mean Corpuscular HGB Conc 30.4 GM/DL (32-36); Mean Corpuscular Volume 89.2 FL (87-102); Mean Platelet Volume 12.2 FL (9.6-12.0); Monocytes % 5.5 % (1.7-12.7); Neutrophils % 86.7 % (38.7-73.9); Platelet Count 305 T/CUMM (130-400); Red Blood Count 2.95 MC/CUMM (3.8-5.5); Red Cell Distribution Width 14.5 % (9.3-17.3); White Blood Count 12.7 T/CUMM (4-12)
[2020-12-22 06:04] LABS: Eosinophils 4 % (0-10); Hypochromasia 1+; Lymphocytes 1 % (20-55); Microcytosis 1+; Platelet Estimate Adequate; Segmented Neutrophils 92 % (50-85); Total Cells Counted 100
[2020-12-22 06:12] LABS: Calcium 8.8 MG/DL (8.5-10.1); Potassium 3.7 MMOL/L (3.5-5.1)
[2020-12-22] MEDS: fentaNYL INJ 5,000 MCG in SODIUM CHLORIDE 0.9% 150 ML IV PRN ×2 (06:25→20:32)
[2020-12-22] MEDS: methylPREDNISolone SOD SUC 40 MG/1 ML VIAL IV SCH ×2 (06:39→18:28)
[2020-12-22] MEDS: LACTULOSE 20 GM/30 ML UDCUP PO SCH ×2 (09:02→22:01)
[2020-12-22] MEDS: ASCORBIC ACID 500 MG TABLET PO SCH ×2 (09:02→22:11)
[2020-12-22] MEDS: APIXABAN 5 MG TABLET PO SCH ×2 (09:03→22:11)
[2020-12-22] MEDS: CHOLECALCIFEROL 1,000 UNIT TABLET PO SCH (09:03)
[2020-12-22] MEDS: VANCOMYCIN INJ 1,500 MG in SODIUM CHLORIDE 0.9% 500 ML IV SCH (09:03)
[2020-12-22] MEDS: CETIRIZINE 10 MG TABLET PO SCH (09:03)
[2020-12-22] MEDS: FUROSEMIDE 40 MG/4 ML VIAL IV SCH ×2 (09:33→16:16)
[2020-12-22] MEDS: FAMOTIDINE 20 MG/2 ML VIAL IV SCH (12:22)
[2020-12-22] MEDS: cefTRIAXone 1,000 MG in SODIUM CHLORIDE 0.9% 100 ML IV SCH (12:23)
[2020-12-22] MEDS: POTASSIUM CHLORIDE 20 MEQ TABLET PO PRN (12:23)
[2020-12-23] MEDS: INSULIN REGULAR 100 UNIT/ML SUBCUT SCH ×4 (00:08→18:00)
[2020-12-23 03:43] LABS: ABG Base Excess 5.8 MMOL/L (-2.5-2.5); ABG HCO3 32.4 MMOL/L (20-26); ABG Oxygen Saturation 98.9 % (95-100); ABG PCO2 59.7 MM HG (35-48); ABG PH 7.352 (7.35-7.45); ABG PO2 224.3 MM HG (80-95); ABG TCO2 34.2 MMOL/L (23-27)
[2020-12-23 05:00] LABS: Basophils % 0.1 % (0.0-0.8); Eosinophils # 0.1 10*3/uL (0.0-0.87); Eosinophils % 0.6 % (0.00-10.9); Hematocrit 24.8 VOL% (35.7-47.0); Hemoglobin 7.6 GM/DL (12.0-16.0); Immature Granulocytes % 1.1 %; Immature Granulocytes Absolute 0.13 #; Lymphocytes # 0.6 10*3/uL (1.4-4.0); Lymphocytes % 5.4 % (21.3-54.2); Mean Corpuscular HGB Conc 30.6 GM/DL (32-36); Mean Corpuscular Volume 87.6 FL (87-102); Mean Platelet Volume 11.8 FL (9.6-12.0); Monocytes % 6.2 % (1.7-12.7); Neutrophils % 86.6 % (38.7-73.9); Platelet Count 307 T/CUMM (130-400); Red Blood Count 2.83 MC/CUMM (3.8-5.5); Red Cell Distribution Width 14.6 % (9.3-17.3); White Blood Count 11.3 T/CUMM (4-12)
[2020-12-23 05:20] LABS: Calcium 8.8 MG/DL (8.5-10.1); Potassium 3.6 MMOL/L (3.5-5.1)
[2020-12-23] MEDS: MIDAZOLAM 100 MG in SODIUM CHLORIDE 0.9% 80 ML IV PRN (05:26)
[2020-12-23] MEDS: POTASSIUM CHLORIDE 20 MEQ TABLET PO PRN (06:13)
[2020-12-23] MEDS: methylPREDNISolone SOD SUC 40 MG/1 ML VIAL IV SCH ×2 (06:13→17:45)
[2020-12-23] MEDS: FUROSEMIDE 40 MG/4 ML VIAL IV SCH ×2 (09:25→15:15)
[2020-12-23] MEDS: CETIRIZINE 10 MG TABLET PO SCH (09:30)
[2020-12-23] MEDS: VANCOMYCIN INJ 1,500 MG in SODIUM CHLORIDE 0.9% 500 ML IV SCH (09:30)
[2020-12-23] MEDS: POTASSIUM CHLORIDE 20 MEQ PACK PO PRN (09:30)
[2020-12-23] MEDS: ASCORBIC ACID 500 MG TABLET PO SCH ×2 (09:30→20:32)
[2020-12-23] MEDS: CHOLECALCIFEROL 1,000 UNIT TABLET PO SCH (09:30)
[2020-12-23] MEDS: LACTULOSE 20 GM/30 ML UDCUP PO SCH ×2 (09:30→20:32)
[2020-12-23] MEDS: APIXABAN 5 MG TABLET PO SCH ×2 (09:30→20:32)
[2020-12-23] MEDS: FAMOTIDINE 20 MG/2 ML VIAL IV SCH (12:30)
[2020-12-23] MEDS: cefTRIAXone 1,000 MG in SODIUM CHLORIDE 0.9% 100 ML IV SCH (12:30)
[2020-12-23] MEDS: fentaNYL INJ 5,000 MCG in SODIUM CHLORIDE 0.9% 150 ML IV PRN (14:25)
[2020-12-24] MEDS: INSULIN REGULAR 100 UNIT/ML SUBCUT SCH ×4 (02:06→20:42)
[2020-12-24 03:02] LABS: ABG HCO3 30.6 MMOL/L (20-26); ABG Oxygen Saturation 84.1 % (95-100); ABG PH 7.401 (7.35-7.45); ABG TCO2 30.6 MMOL/L (23-27)
[2020-12-24] MEDS: MIDAZOLAM 100 MG in SODIUM CHLORIDE 0.9% 80 ML IV PRN ×2 (03:13→12:05)
[2020-12-24 05:10] LABS: Basophils % 0.1 % (0.0-0.8); Eosinophils % 0.2 % (0.00-10.9); Hematocrit 28.4 VOL% (35.7-47.0); Hemoglobin 9.1 GM/DL (12.0-16.0); Immature Granulocytes % 1.4 %; Immature Granulocytes Absolute 0.19 #; Lymphocytes # 0.7 10*3/uL (1.4-4.0); Lymphocytes % 5.2 % (21.3-54.2); Mean Corpuscular Volume 84.5 FL (87-102); Mean Platelet Volume 11.6 FL (9.6-12.0); Monocytes % 8.5 % (1.7-12.7); Neutrophils % 84.6 % (38.7-73.9); Red Blood Count 3.36 MC/CUMM (3.8-5.5); Red Cell Distribution Width 14.7 % (9.3-17.3); White Blood Count 13.7 T/CUMM (4-12)
[2020-12-24 05:17] LABS: Platelet Count 397 T/CUMM (130-400)
[2020-12-24 05:22] LABS: Calcium 8.9 MG/DL (8.5-10.1); Osmolality,Calculated 295.1 MOS/KG (273-304); Potassium 3.5 MMOL/L (3.5-5.1)
[2020-12-24] MEDS: fentaNYL INJ 5,000 MCG in SODIUM CHLORIDE 0.9% 150 ML IV PRN ×2 (05:29→21:22)
[2020-12-24 05:50] LABS: Hypochromasia 1+; Microcytosis 1+; Ovalocytes Slight
[2020-12-24 05:51] LABS: Platelet Estimate Normal
[2020-12-24] MEDS: POTASSIUM CHLORIDE 20 MEQ PACK PO PRN ×2 (06:30→08:45)
[2020-12-24] MEDS: methylPREDNISolone SOD SUC 40 MG/1 ML VIAL IV SCH ×2 (06:31→18:02)
[2020-12-24] MEDS: ASCORBIC ACID 500 MG TABLET PO SCH ×2 (08:45→21:19)
[2020-12-24] MEDS: CHOLECALCIFEROL 1,000 UNIT TABLET PO SCH (08:45)
[2020-12-24] MEDS: CETIRIZINE 10 MG TABLET PO SCH (08:45)
[2020-12-24] MEDS: APIXABAN 5 MG TABLET PO SCH ×2 (08:45→21:19)
[2020-12-24] MEDS: LACTULOSE 20 GM/30 ML UDCUP PO SCH ×2 (08:45→21:19)
[2020-12-24] MEDS: FUROSEMIDE 40 MG/4 ML VIAL IV SCH ×2 (08:50→15:25)
[2020-12-24] MEDS: VANCOMYCIN INJ 1,500 MG in SODIUM CHLORIDE 0.9% 500 ML IV SCH (08:55)
[2020-12-24] MEDS: FAMOTIDINE 20 MG/2 ML VIAL IV SCH (12:25)
[2020-12-25] MEDS: INSULIN REGULAR 100 UNIT/ML SUBCUT SCH ×4 (01:43→18:10)
[2020-12-25 04:27] LABS: ABG Base Excess 5.2 MMOL/L (-2.5-2.5); ABG HCO3 31.7 MMOL/L (20-26); ABG Oxygen Saturation 96.9 % (95-100); ABG PCO2 57.1 MM HG (35-48); ABG PH 7.362 (7.35-7.45); ABG PO2 100.8 MM HG (80-95); ABG TCO2 33.4 MMOL/L (23-27)
[2020-12-25 06:16] LABS: Basophils % 0.1 % (0.0-0.8); Eosinophils % 0.1 % (0.00-10.9); Hematocrit 27.1 VOL% (35.7-47.0); Hemoglobin 8.5 GM/DL (12.0-16.0); Immature Granulocytes % 1.3 %; Immature Granulocytes Absolute 0.17 #; Lymphocytes # 0.6 10*3/uL (1.4-4.0); Lymphocytes % 4.4 % (21.3-54.2); Mean Corpuscular HGB Conc 31.4 GM/DL (32-36); Mean Corpuscular Volume 85.8 FL (87-102); Mean Platelet Volume 11.8 FL (9.6-12.0); Monocytes % 7.9 % (1.7-12.7); Neutrophils % 86.2 % (38.7-73.9); Platelet Count 378 T/CUMM (130-400); Red Blood Count 3.16 MC/CUMM (3.8-5.5); Red Cell Distribution Width 15.2 % (9.3-17.3); White Blood Count 12.6 T/CUMM (4-12)
[2020-12-25 06:32] LABS: Calcium 8.8 MG/DL (8.5-10.1); Osmolality,Calculated 293.4 MOS/KG (273-304); Potassium 3.4 MMOL/L (3.5-5.1)
[2020-12-25 06:43] LABS: Eosinophils 1 % (0-10); Lymphocytes 2 % (20-55); Platelet Estimate Normal; Segmented Neutrophils 89 % (50-85); Total Cells Counted 100
[2020-12-25] MEDS: FUROSEMIDE 40 MG/4 ML VIAL IV SCH ×2 (09:00→16:10)
[2020-12-25] MEDS: methylPREDNISolone SOD SUC 40 MG/1 ML VIAL IV SCH ×2 (09:00→18:10)
[2020-12-25] MEDS: LACTULOSE 20 GM/30 ML UDCUP PO SCH ×2 (09:10→21:05)
[2020-12-25] MEDS: POTASSIUM CHLORIDE 20 MEQ PACK PO SCH ×4 (09:10→21:05)
[2020-12-25] MEDS: CHOLECALCIFEROL 1,000 UNIT TABLET PO SCH (09:10)
[2020-12-25] MEDS: APIXABAN 5 MG TABLET PO SCH ×2 (09:10→21:06)
[2020-12-25] MEDS: ASCORBIC ACID 500 MG TABLET PO SCH ×2 (09:10→21:06)
[2020-12-25] MEDS: CETIRIZINE 10 MG TABLET PO SCH (09:10)
[2020-12-25] MEDS: fentaNYL INJ 5,000 MCG in SODIUM CHLORIDE 0.9% 150 ML IV PRN ×2 (10:00→21:04)
[2020-12-25] MEDS: MIDAZOLAM 100 MG in SODIUM CHLORIDE 0.9% 80 ML IV PRN ×2 (10:45→21:03)
[2020-12-25] MEDS: FAMOTIDINE 20 MG/2 ML VIAL IV SCH (12:30)
[2020-12-25] MEDS: guaiFENesin/DM ER 600-30 MG TABLET PO PRN (21:06)
[2020-12-26] MEDS: INSULIN REGULAR 100 UNIT/ML SUBCUT SCH ×4 (01:57→18:04)
[2020-12-26 03:30] LABS: ABG Base Excess 7.8 MMOL/L (-2.5-2.5); ABG HCO3 33.3 MMOL/L (20-26); ABG Oxygen Saturation 96.9 % (95-100); ABG PCO2 52.8 MM HG (35-48); ABG PH 7.418 (7.35-7.45); ABG PO2 92.1 MM HG (80-95); ABG TCO2 34.9 MMOL/L (23-27)
[2020-12-26 05:16] LABS: Basophils % 0.2 % (0.0-0.8); Hematocrit 29.9 VOL% (35.7-47.0); Hemoglobin 9.3 GM/DL (12.0-16.0); Immature Granulocytes % 1.3 %; Immature Granulocytes Absolute 0.17 #; Lymphocytes # 0.8 10*3/uL (1.4-4.0); Lymphocytes % 5.9 % (21.3-54.2); Mean Corpuscular HGB Conc 31.1 GM/DL (32-36); Mean Corpuscular Volume 86.7 FL (87-102); Mean Platelet Volume 11.9 FL (9.6-12.0); Monocytes % 8.1 % (1.7-12.7); NRBC # 0.02 10*3/uL; Neutrophils % 84.5 % (38.7-73.9); Platelet Count 405 T/CUMM (130-400); Red Blood Count 3.45 MC/CUMM (3.8-5.5); Red Cell Distribution Width 15.6 % (9.3-17.3); White Blood Count 13.1 T/CUMM (4-12)
[2020-12-26 05:37] LABS: Osmolality,Calculated 296.1 MOS/KG (273-304); Potassium 3.7 MMOL/L (3.5-5.1)
[2020-12-26] MEDS: methylPREDNISolone SOD SUC 40 MG/1 ML VIAL IV SCH ×2 (06:19→18:46)
[2020-12-26] MEDS: MIDAZOLAM 100 MG in SODIUM CHLORIDE 0.9% 80 ML IV PRN ×2 (06:55→22:45)
[2020-12-26] MEDS: FUROSEMIDE 40 MG/4 ML VIAL IV SCH ×2 (07:01→15:07)
[2020-12-26] MEDS: APIXABAN 5 MG TABLET PO SCH ×2 (10:00→21:34)
[2020-12-26] MEDS: CETIRIZINE 10 MG TABLET PO SCH (10:00)
[2020-12-26] MEDS: LACTULOSE 20 GM/30 ML UDCUP PO SCH ×2 (10:00→21:34)
[2020-12-26] MEDS: CHOLECALCIFEROL 1,000 UNIT TABLET PO SCH (10:03)
[2020-12-26] MEDS: ASCORBIC ACID 500 MG TABLET PO SCH ×2 (10:03→21:34)
[2020-12-26] MEDS: fentaNYL INJ 5,000 MCG in SODIUM CHLORIDE 0.9% 150 ML IV PRN (11:00)
[2020-12-26] MEDS: FAMOTIDINE 20 MG/2 ML VIAL IV SCH (15:06)
[2020-12-26] MEDS: POTASSIUM CHLORIDE 20 MEQ PACK PO PRN (15:08)
[2020-12-27] MEDS: INSULIN REGULAR 100 UNIT/ML SUBCUT SCH ×4 (00:25→17:47)
[2020-12-27] MEDS: fentaNYL INJ 5,000 MCG in SODIUM CHLORIDE 0.9% 150 ML IV PRN ×2 (03:00→15:19)
[2020-12-27 04:13] LABS: ABG HCO3 29.7 MMOL/L (20-26); ABG Oxygen Saturation 91.3 % (95-100); ABG PCO2 60.7 MM HG (35-48); ABG PH 7.347 (7.35-7.45); ABG PO2 67.5 MM HG (80-95); ABG TCO2 30.5 MMOL/L (23-27)
[2020-12-27 04:56] LABS: Basophils % 0.1 % (0.0-0.8); Eosinophils % 0.3 % (0.00-10.9); Hematocrit 30.1 VOL% (35.7-47.0); Hemoglobin 9.3 GM/DL (12.0-16.0); Immature Granulocytes % 1.5 %; Immature Granulocytes Absolute 0.18 #; Lymphocytes # 0.8 10*3/uL (1.4-4.0); Lymphocytes % 6.4 % (21.3-54.2); Mean Corpuscular HGB Conc 30.9 GM/DL (32-36); Mean Corpuscular Volume 86.5 FL (87-102); Mean Platelet Volume 11.9 FL (9.6-12.0); Monocytes % 7.9 % (1.7-12.7); Neutrophils % 83.8 % (38.7-73.9); Platelet Count 399 T/CUMM (130-400); Red Blood Count 3.48 MC/CUMM (3.8-5.5); White Blood Count 12.1 T/CUMM (4-12)
[2020-12-27 05:14] LABS: Osmolality,Calculated 292.3 MOS/KG (273-304); Potassium 3.5 MMOL/L (3.5-5.1)
[2020-12-27] MEDS: methylPREDNISolone SOD SUC 40 MG/1 ML VIAL IV SCH ×2 (06:10→17:47)
[2020-12-27] MEDS: POTASSIUM CHLORIDE 20 MEQ PACK PO PRN (06:15)
[2020-12-27] MEDS: CHOLECALCIFEROL 1,000 UNIT TABLET PO SCH (08:18)
[2020-12-27] MEDS: ASCORBIC ACID 500 MG TABLET PO SCH (08:18)
[2020-12-27] MEDS: APIXABAN 5 MG TABLET PO SCH (08:18)
[2020-12-27] MEDS: LACTULOSE 20 GM/30 ML UDCUP PO SCH ×2 (08:18→21:35)
[2020-12-27] MEDS: CETIRIZINE 10 MG TABLET PO SCH (08:18)
[2020-12-27] MEDS ORDERED: BACITRACIN OINT 0.9 GM PACK TOP PRN (09:42)
[2020-12-27] MEDS: MIDAZOLAM 100 MG in SODIUM CHLORIDE 0.9% 80 ML IV PRN (12:13)
[2020-12-27] MEDS: FAMOTIDINE 20 MG/2 ML VIAL IV SCH (13:14)
[2020-12-27] MEDS: ENOXAPARIN 40 MG/0.4 ML SYRINGE SUBCUT SCH (14:09)
[2020-12-27] MEDS ORDERED: QUEtiapine 25 MG TABLET PO SCH (21:00)
[2020-12-28] MEDS: INSULIN REGULAR 100 UNIT/ML SUBCUT SCH ×4 (00:08→18:23)
[2020-12-28 03:59] LABS: Basophils % 0.1 % (0.0-0.8); Hematocrit 27.3 VOL% (35.7-47.0); Hemoglobin 8.5 GM/DL (12.0-16.0); Immature Granulocytes % 1.1 %; Immature Granulocytes Absolute 0.11 #; Lymphocytes # 0.5 10*3/uL (1.4-4.0); Lymphocytes % 4.6 % (21.3-54.2); Mean Corpuscular HGB Conc 31.1 GM/DL (32-36); Mean Corpuscular Volume 85.8 FL (87-102); Mean Platelet Volume 11.7 FL (9.6-12.0); Neutrophils % 88.2 % (38.7-73.9); Platelet Count 311 T/CUMM (130-400); Red Blood Count 3.18 MC/CUMM (3.8-5.5); White Blood Count 10.3 T/CUMM (4-12)
[2020-12-28 04:20] LABS: Hypochromasia 1+; Lymphocytes 8 % (20-55); Microcytosis 1+; Platelet Estimate Normal; Segmented Neutrophils 85 % (50-85); Total Cells Counted 100
[2020-12-28 04:23] LABS: Calcium 8.7 MG/DL (8.5-10.1); Osmolality,Calculated 290.3 MOS/KG (273-304); Potassium 3.8 MMOL/L (3.5-5.1)
[2020-12-28 04:33] LABS: ABG Base Excess 5.2 MMOL/L (-2.5-2.5); ABG HCO3 29.1 MMOL/L (20-26); ABG Oxygen Saturation 95.6 % (95-100); ABG PCO2 57.3 MM HG (35-48); ABG PH 7.354 (7.35-7.45); ABG TCO2 29.6 MMOL/L (23-27); Allen Test Positive; Pt O2 Delivery Device Ventilator
[2020-12-28] MEDS: MIDAZOLAM 100 MG in SODIUM CHLORIDE 0.9% 80 ML IV PRN (04:50)
[2020-12-28] MEDS: methylPREDNISolone SOD SUC 40 MG/1 ML VIAL IV SCH ×2 (05:28→18:25)
[2020-12-28] MEDS: POTASSIUM CHLORIDE 20 MEQ PACK PO PRN (05:31)
[2020-12-28] MEDS: fentaNYL INJ 5,000 MCG in SODIUM CHLORIDE 0.9% 150 ML IV PRN ×2 (05:45→23:16)
[2020-12-28] MEDS: CHOLECALCIFEROL 1,000 UNIT TABLET PO SCH (08:35)
[2020-12-28] MEDS: LACTULOSE 20 GM/30 ML UDCUP PO SCH ×2 (08:35→21:11)
[2020-12-28] MEDS ORDERED: FUROSEMIDE 40 MG/4 ML VIAL IV ONE (08:44)
[2020-12-28] MEDS ORDERED: DEXMEDETOMIDINE 200 MCG in SODIUM CHLORIDE 0.9% 48 ML IV PRN (09:53)
[2020-12-28] MEDS: ENOXAPARIN 40 MG/0.4 ML SYRINGE SUBCUT SCH (12:55)
[2020-12-28] MEDS: FAMOTIDINE 20 MG/2 ML VIAL IV SCH (12:55)
[2020-12-28] MEDS: DEXMEDETOMIDINE 400 MCG in SODIUM CHLORIDE 0.9% 96 ML IV PRN ×2 (17:32→23:16)
[2020-12-28] MEDS: QUEtiapine 25 MG TABLET PO SCH (21:11)
[2020-12-29] MEDS: INSULIN REGULAR 100 UNIT/ML SUBCUT SCH ×4 (00:13→18:25)
[2020-12-29 03:06] LABS: ABG Oxygen Saturation 95.6 % (95-100); ABG PCO2 47.9 MM HG (35-48); ABG PH 7.429 (7.35-7.45); ABG PO2 81.7 MM HG (80-95); ABG TCO2 32.5 MMOL/L (23-27)
[2020-12-29] MEDS: MIDAZOLAM 100 MG in SODIUM CHLORIDE 0.9% 80 ML IV PRN ×2 (03:31→20:55)
[2020-12-29 04:33] LABS: Eosinophils % 0.1 % (0.00-10.9); Hematocrit 26.2 VOL% (35.7-47.0); Hemoglobin 8.2 GM/DL (12.0-16.0); Immature Granulocytes % 0.7 %; Immature Granulocytes Absolute 0.06 #; Lymphocytes # 0.5 10*3/uL (1.4-4.0); Lymphocytes % 6.1 % (21.3-54.2); Mean Corpuscular HGB Conc 31.3 GM/DL (32-36); Mean Corpuscular Volume 86.8 FL (87-102); Mean Platelet Volume 11.5 FL (9.6-12.0); Monocytes % 8.7 % (1.7-12.7); Neutrophils % 84.4 % (38.7-73.9); Platelet Count 282 T/CUMM (130-400); Red Blood Count 3.02 MC/CUMM (3.8-5.5); Red Cell Distribution Width 16.2 % (9.3-17.3); White Blood Count 8.7 T/CUMM (4-12)
[2020-12-29 04:47] LABS: Calcium 8.8 MG/DL (8.5-10.1); Osmolality,Calculated 291.4 MOS/KG (273-304); Potassium 3.7 MMOL/L (3.5-5.1)
[2020-12-29] MEDS: DEXMEDETOMIDINE 400 MCG in SODIUM CHLORIDE 0.9% 96 ML IV PRN ×2 (05:38→15:07)
[2020-12-29] MEDS: methylPREDNISolone SOD SUC 40 MG/1 ML VIAL IV SCH (05:38)
[2020-12-29] MEDS ORDERED: MIDAZOLAM 10 MG/2 ML VIAL ONE (06:36)
[2020-12-29] MEDS ORDERED: SEVOFLURANE 1 UNIT/15 MINUTE INH ONE (06:49)
[2020-12-29] MEDS ORDERED: ROCURONIUM 50 MG/5 ML VIAL IV ONE ×2 (06:49→08:48)
[2020-12-29] MEDS ORDERED: KETAMINE 500 MG/10 ML VIAL ONE (06:49)
[2020-12-29] MEDS ORDERED: GLYCOPYRROLATE 0.4 MG/2 ML VIAL ONE (08:30)
[2020-12-29] MEDS ORDERED: MIDAZOLAM 2 MG/2 ML VIAL ONE ×5 (08:48→08:53)
[2020-12-29] MEDS: LACTULOSE 20 GM/30 ML UDCUP PO SCH ×2 (09:27→20:00)
[2020-12-29] MEDS: CHOLECALCIFEROL 1,000 UNIT TABLET PO SCH (09:28)
[2020-12-29] MEDS: QUEtiapine 25 MG TABLET PO SCH ×2 (09:28→20:00)
[2020-12-29] MEDS: fentaNYL INJ 5,000 MCG in SODIUM CHLORIDE 0.9% 150 ML IV PRN ×2 (11:49→22:52)
[2020-12-29] MEDS: ALPRAZolam 0.5 MG TABLET PO SCH ×2 (11:53→20:00)
[2020-12-29] MEDS: FAMOTIDINE 20 MG/2 ML VIAL IV SCH (12:04)
[2020-12-29] MEDS: hydrALAZINE 20 MG/1 ML VIAL IV PRN (13:42)
[2020-12-29] MEDS ORDERED: BISACODYL 10 MG SUPP RECTAL SCH (14:57)
[2020-12-29] MEDS ORDERED: FUROSEMIDE 40 MG/4 ML VIAL IV ONE (15:27)
[2020-12-29 17:53] LABS: Calcium 9.1 MG/DL (8.5-10.1); Osmolality,Calculated 293.4 MOS/KG (273-304); Potassium 3.4 MMOL/L (3.5-5.1)
[2020-12-29] MEDS ORDERED: POTASSIUM CHLORIDE RIDER 10 MEQ/100 ML PREMIX IV ONE (18:14)
[2020-12-29] MEDS: POTASSIUM CHLORIDE RIDER 20 MEQ/100 ML PREMIX IV PRN (18:26)
[2020-12-29] MEDS: POTASSIUM CHLORIDE RIDER 10 MEQ/100 ML PREMIX IV PRN (20:30)
[2020-12-30] MEDS: INSULIN REGULAR 100 UNIT/ML SUBCUT SCH ×4 (00:29→17:54)
[2020-12-30 03:36] LABS: ABG Base Excess 4.9 MMOL/L (-2.5-2.5); ABG HCO3 28.8 MMOL/L (20-26); ABG Oxygen Saturation 96.9 % (95-100); ABG PCO2 54.2 MM HG (35-48); ABG PH 7.371 (7.35-7.45); ABG TCO2 28.6 MMOL/L (23-27)
[2020-12-30 06:08] LABS: Basophils % 0.1 % (0.0-0.8); Eosinophils # 0.1 10*3/uL (0.0-0.87); Eosinophils % 0.5 % (0.00-10.9); Hematocrit 30.7 VOL% (35.7-47.0); Hemoglobin 9.4 GM/DL (12.0-16.0); Immature Granulocytes % 0.8 %; Lymphocytes # 1.1 10*3/uL (1.4-4.0); Lymphocytes % 8.9 % (21.3-54.2); Mean Corpuscular HGB Conc 30.6 GM/DL (32-36); Mean Corpuscular Volume 86.2 FL (87-102); Mean Platelet Volume 12.3 FL (9.6-12.0); Monocytes % 9.2 % (1.7-12.7); Neutrophils % 80.5 % (38.7-73.9); Platelet Count 312 T/CUMM (130-400); Red Blood Count 3.56 MC/CUMM (3.8-5.5); Red Cell Distribution Width 16.8 % (9.3-17.3); White Blood Count 12.9 T/CUMM (4-12)
[2020-12-30 06:17] LABS: PT Patient Result 11.4 SECS (10.5-12.0)
[2020-12-30 06:39] LABS: Calcium 8.8 MG/DL (8.5-10.1); Osmolality,Calculated 284.4 MOS/KG (273-304); Potassium 3.3 MMOL/L (3.5-5.1)
[2020-12-30] MEDS: POTASSIUM CHLORIDE RIDER 20 MEQ/100 ML PREMIX IV PRN ×2 (06:45→09:00)
[2020-12-30] MEDS: fentaNYL INJ 5,000 MCG in SODIUM CHLORIDE 0.9% 150 ML IV PRN ×2 (07:30→23:18)
[2020-12-30] MEDS ORDERED: BISACODYL 10 MG SUPP RECTAL PRN (07:42)
[2020-12-30] MEDS ORDERED: LACTULOSE 20 GM/30 ML UDCUP PO PRN (07:42)
[2020-12-30] MEDS ORDERED: LACTATED RINGERS 1,000 ML IV SCH (08:00)
[2020-12-30] MEDS: QUEtiapine 25 MG TABLET PO SCH ×2 (09:00→21:56)
[2020-12-30] MEDS: predniSONE 20 MG TABLET PO SCH (09:00)
[2020-12-30] MEDS: CHOLECALCIFEROL 1,000 UNIT TABLET PO SCH (09:00)
[2020-12-30] MEDS: ALPRAZolam 0.5 MG TABLET PO SCH ×3 (09:00→21:56)
[2020-12-30] MEDS: MIDAZOLAM 100 MG in SODIUM CHLORIDE 0.9% 80 ML IV PRN (09:15)
[2020-12-30] MEDS ORDERED: propofoL 200 MG/20 ML VIAL IV ONE (13:26)
[2020-12-30] MEDS ORDERED: PHENYLEPHRINE 1 MG/10 ML SYRINGE IV ONE (13:26)
[2020-12-30] MEDS ORDERED: LIDOCAINE 2% 5 ML VIAL ONE ×2 (13:26)
[2020-12-30] MEDS: FAMOTIDINE 20 MG/2 ML VIAL IV SCH (14:52)
[2020-12-30] MEDS: METOPROLOL TARTRATE 25 MG TABLET PO SCH ×2 (15:12→21:56)
[2020-12-30] MEDS ORDERED: ATROPINE 1 MG/10 ML SYRINGE ONE (18:15)
[2020-12-31] MEDS: INSULIN REGULAR 100 UNIT/ML SUBCUT SCH ×5 (01:04→23:38)
[2020-12-31] MEDS: ALPRAZolam 0.5 MG TABLET PO SCH ×4 (02:00→20:29)
[2020-12-31 04:25] LABS: ABG Base Excess 5.7 MMOL/L (-2.5-2.5); ABG HCO3 29.6 MMOL/L (20-26); ABG Oxygen Saturation 97.9 % (95-100); ABG PH 7.361 (7.35-7.45); ABG TCO2 30.2 MMOL/L (23-27); Allen Test Positive; Pt O2 Delivery Device Ventilator
[2020-12-31 05:04] LABS: Eosinophils # 0.1 10*3/uL (0.0-0.87); Eosinophils % 1.1 % (0.00-10.9); Hematocrit 26.3 VOL% (35.7-47.0); Hemoglobin 8.2 GM/DL (12.0-16.0); Immature Granulocytes % 0.4 %; Immature Granulocytes Absolute 0.04 #; Lymphocytes # 1.2 10*3/uL (1.4-4.0); Lymphocytes % 10.9 % (21.3-54.2); Mean Corpuscular HGB Conc 31.2 GM/DL (32-36); Mean Corpuscular Volume 86.8 FL (87-102); Monocytes % 8.1 % (1.7-12.7); Neutrophils % 79.5 % (38.7-73.9); Platelet Count 223 T/CUMM (130-400); Red Blood Count 3.03 MC/CUMM (3.8-5.5); Red Cell Distribution Width 17.1 % (9.3-17.3); White Blood Count 10.5 T/CUMM (4-12)
[2020-12-31 05:13] LABS: Calcium 8.5 MG/DL (8.5-10.1); Osmolality,Calculated 282.5 MOS/KG (273-304); Potassium 3.5 MMOL/L (3.5-5.1)
[2020-12-31] MEDS: POTASSIUM CHLORIDE RIDER 20 MEQ/100 ML PREMIX IV PRN (06:00)
[2020-12-31] MEDS: MIDAZOLAM 100 MG in SODIUM CHLORIDE 0.9% 80 ML IV PRN (06:17)
[2020-12-31] MEDS: POTASSIUM CHLORIDE RIDER 10 MEQ/100 ML PREMIX IV PRN (08:03)
[2020-12-31] MEDS: predniSONE 20 MG TABLET PO SCH (08:35)
[2020-12-31] MEDS: METOPROLOL TARTRATE 25 MG TABLET PO SCH (08:35)
[2020-12-31] MEDS: CHOLECALCIFEROL 1,000 UNIT TABLET PO SCH (08:35)
[2020-12-31] MEDS: QUEtiapine 25 MG TABLET PO SCH ×2 (08:35→20:29)
[2020-12-31] MEDS: fentaNYL INJ 5,000 MCG in SODIUM CHLORIDE 0.9% 150 ML IV PRN ×2 (09:45→21:41)
[2020-12-31 10:05] LABS: ABG Base Excess 6.7 MMOL/L (-2.5-2.5); ABG HCO3 32.2 MMOL/L (20-26); ABG Oxygen Saturation 94.9 % (95-100); ABG PCO2 52.5 MM HG (35-48); ABG PH 7.406 (7.35-7.45); ABG PO2 76.7 MM HG (80-95); ABG TCO2 33.8 MMOL/L (23-27)
[2020-12-31] MEDS: fentaNYL 25 MCG/HR PATCH TRANSDERM SCH (11:43)
[2020-12-31] MEDS: FAMOTIDINE 20 MG/2 ML VIAL IV SCH (13:57)
[2020-12-31] MEDS: ACETAMINOPHEN 325 MG TABLET PO PRN (19:40)
[2020-12-31] MEDS: METOPROLOL TARTRATE 50 MG TABLET PO SCH (20:29)
[2021-01-01] MEDS: hydrALAZINE 20 MG/1 ML VIAL IV PRN (01:12)
[2021-01-01] MEDS: ALPRAZolam 0.5 MG TABLET PO SCH ×4 (02:28→21:01)
[2021-01-01] MEDS ORDERED: LORazepam 2 MG/1 ML VIAL IV ONE (03:08)
[2021-01-01] MEDS: ACETAMINOPHEN 325 MG TABLET PO PRN ×2 (04:42→08:58)
[2021-01-01 05:24] LABS: ABG Base Excess 7.9 MMOL/L (-2.5-2.5); ABG HCO3 31.6 MMOL/L (20-26); ABG Oxygen Saturation 93.6 % (95-100); ABG PCO2 47.9 MM HG (35-48); ABG PH 7.446 (7.35-7.45); ABG PO2 67.4 MM HG (80-95); ABG TCO2 30.6 MMOL/L (23-27)
[2021-01-01 05:58] LABS: Basophils % 0.1 % (0.0-0.8); Eosinophils # 0.1 10*3/uL (0.0-0.87); Eosinophils % 0.9 % (0.00-10.9); Hematocrit 26.5 VOL% (35.7-47.0); Hemoglobin 8.5 GM/DL (12.0-16.0); Immature Granulocytes % 0.6 %; Immature Granulocytes Absolute 0.07 #; Lymphocytes # 1.2 10*3/uL (1.4-4.0); Lymphocytes % 10.3 % (21.3-54.2); Mean Corpuscular HGB Conc 32.1 GM/DL (32-36); Mean Corpuscular Volume 85.8 FL (87-102); Mean Platelet Volume 12.3 FL (9.6-12.0); Monocytes % 6.5 % (1.7-12.7); Neutrophils % 81.6 % (38.7-73.9); Platelet Count 210 T/CUMM (130-400); Red Blood Count 3.09 MC/CUMM (3.8-5.5); Red Cell Distribution Width 16.9 % (9.3-17.3); White Blood Count 11.7 T/CUMM (4-12)
[2021-01-01 06:32] LABS: Calcium 8.8 MG/DL (8.5-10.1); Osmolality,Calculated 280.5 MOS/KG (273-304); Potassium 3.5 MMOL/L (3.5-5.1)
[2021-01-01] MEDS: INSULIN REGULAR 100 UNIT/ML SUBCUT SCH ×4 (06:45→23:26)
[2021-01-01] MEDS: fentaNYL INJ 5,000 MCG in SODIUM CHLORIDE 0.9% 150 ML IV PRN ×2 (07:04→18:15)
[2021-01-01] MEDS: POTASSIUM CHLORIDE RIDER 20 MEQ/100 ML PREMIX IV PRN (07:11)
[2021-01-01 08:51] LABS: Bacteria,Urine Occasional /HPF (Few); Bilirubin,Urine Negative (Negative); Blood, Urine Small mg/dL (Negative); Glucose,Urine (UA) Negative (Negative); Ketones,Urine Negative (Negative); Mucus,Urine Occasional /LPF (Occasional); Nitrite,Urine Negative (Negative); Protein,Urine Negative; RBC,Urine 10 /HPF (0-4); Urine Appearance Slightly Hazy (Clear); Urine Color Yellow (Yellow); Urine Specific Gravity 1.013 (1.001-1.035); Urine Urobilinogen < 2.0 EU/DL (0.2-1.0)
[2021-01-01] MEDS: predniSONE 20 MG TABLET PO SCH (08:57)
[2021-01-01] MEDS: CHOLECALCIFEROL 1,000 UNIT TABLET PO SCH (08:57)
[2021-01-01] MEDS: METOPROLOL TARTRATE 50 MG TABLET PO SCH ×2 (08:57→21:01)
[2021-01-01] MEDS: QUEtiapine 25 MG TABLET PO SCH ×2 (08:58→21:01)
[2021-01-01] MEDS: POTASSIUM CHLORIDE RIDER 10 MEQ/100 ML PREMIX IV PRN (09:18)
[2021-01-01] MEDS: metroNIDAZOLE INJ 500 MG/100 ML PREMIX IV SCH ×2 (10:44→18:10)
[2021-01-01] MEDS ORDERED: FUROSEMIDE 20 MG/2 ML VIAL IV ONE (11:08)
[2021-01-01] MEDS: CEFEPIME 1,000 MG in SODIUM CHLORIDE 0.9% 100 ML IV SCH ×3 (11:28→22:53)
[2021-01-01] MEDS: FAMOTIDINE 20 MG/2 ML VIAL IV SCH (12:04)
[2021-01-01] MEDS: VANCOMYCIN INJ 1,750 MG in SODIUM CHLORIDE 0.9% 500 ML IV SCH (13:10)
[2021-01-02] MEDS: VANCOMYCIN INJ 1,750 MG in SODIUM CHLORIDE 0.9% 500 ML IV SCH ×2 (00:49→12:22)
[2021-01-02] MEDS: ALPRAZolam 0.5 MG TABLET PO SCH ×4 (03:11→21:00)
[2021-01-02] MEDS: metroNIDAZOLE INJ 500 MG/100 ML PREMIX IV SCH ×3 (03:11→17:51)
[2021-01-02] MEDS: fentaNYL INJ 5,000 MCG in SODIUM CHLORIDE 0.9% 150 ML IV PRN ×3 (03:14→21:27)
[2021-01-02 04:47] LABS: ABG Base Excess 9.9 MMOL/L (-2.5-2.5); ABG HCO3 34.6 MMOL/L (20-26); ABG Oxygen Saturation 91.1 % (95-100); ABG PCO2 48.9 MM HG (35-48); ABG PH 7.468 (7.35-7.45); ABG PO2 58.5 MM HG (80-95); ABG TCO2 36.1 MMOL/L (23-27)
[2021-01-02] MEDS: CEFEPIME 1,000 MG in SODIUM CHLORIDE 0.9% 100 ML IV SCH ×3 (05:35→17:28)
[2021-01-02] MEDS: INSULIN REGULAR 100 UNIT/ML SUBCUT SCH ×3 (05:50→17:28)
[2021-01-02 05:58] LABS: Basophils % 0.2 % (0.0-0.8); Eosinophils # 0.2 10*3/uL (0.0-0.87); Eosinophils % 1.5 % (0.00-10.9); Hematocrit 23.9 VOL% (35.7-47.0); Hemoglobin 7.6 GM/DL (12.0-16.0); Immature Granulocytes % 0.4 %; Immature Granulocytes Absolute 0.04 #; Lymphocytes # 1.2 10*3/uL (1.4-4.0); Lymphocytes % 11.8 % (21.3-54.2); Mean Corpuscular HGB Conc 31.8 GM/DL (32-36); Mean Corpuscular Volume 84.5 FL (87-102); Mean Platelet Volume 11.7 FL (9.6-12.0); Monocytes % 8.2 % (1.7-12.7); Neutrophils % 77.9 % (38.7-73.9); Platelet Count 175 T/CUMM (130-400); Red Blood Count 2.83 MC/CUMM (3.8-5.5); Red Cell Distribution Width 16.7 % (9.3-17.3); White Blood Count 10.2 T/CUMM (4-12)
[2021-01-02 06:28] LABS: Albumin 2.1 G/DL (3.4-5.0); Bilirubin,Total 0.4 MG/DL (0.20-1.00); Calcium 8.4 MG/DL (8.5-10.1); Osmolality,Calculated 281.3 MOS/KG (273-304); Total Protein 5.6 G/DL (6.4-8.2)
[2021-01-02] MEDS: hydrALAZINE 20 MG/1 ML VIAL IV PRN (06:53)
[2021-01-02] MEDS: ACETAMINOPHEN 325 MG TABLET PO PRN (06:53)
[2021-01-02 07:03] VITALS: BP 204/104
[2021-01-02] MEDS ORDERED: MAGNESIUM SULF RIDER 4 GM/100 ML PREMIX IV PRN (07:49)
[2021-01-02] MEDS: METOPROLOL TARTRATE 50 MG TABLET PO SCH ×2 (08:59→21:00)
[2021-01-02] MEDS: CHOLECALCIFEROL 1,000 UNIT TABLET PO SCH (08:59)
[2021-01-02] MEDS: QUEtiapine 25 MG TABLET PO SCH ×2 (08:59→21:00)
[2021-01-02] MEDS: predniSONE 20 MG TABLET PO SCH (08:59)
[2021-01-02] MEDS: POTASSIUM CHLORIDE RIDER 20 MEQ/100 ML PREMIX IV PRN ×2 (09:00→11:00)
[2021-01-02] MEDS ORDERED: MAGNESIUM SULF RIDER 4 GM/100 ML PREMIX IV ONE (09:00)
[2021-01-02] MEDS: PANTOPRAZOLE 40 MG VIAL IV SCH (09:22)
[2021-01-02] MEDS: POTASSIUM CHLORIDE RIDER 10 MEQ/100 ML PREMIX IV PRN (13:00)
[2021-01-03] MEDS: CEFEPIME 1,000 MG in SODIUM CHLORIDE 0.9% 100 ML IV SCH ×4 (00:02→17:20)
[2021-01-03] MEDS: INSULIN REGULAR 100 UNIT/ML SUBCUT SCH ×4 (00:03→18:19)
[2021-01-03] MEDS: VANCOMYCIN INJ 1,750 MG in SODIUM CHLORIDE 0.9% 500 ML IV SCH ×2 (02:00→14:35)
[2021-01-03] MEDS: metroNIDAZOLE INJ 500 MG/100 ML PREMIX IV SCH ×3 (02:03→18:25)
[2021-01-03 02:54] LABS: ABG Base Excess 8.2 MMOL/L (-2.5-2.5); ABG HCO3 32.9 MMOL/L (20-26); ABG Oxygen Saturation 92.8 % (95-100); ABG PCO2 47.1 MM HG (35-48); ABG PH 7.462 (7.35-7.45); ABG PO2 64.1 MM HG (80-95); ABG TCO2 34.3 MMOL/L (23-27); Allen Test Positive; Pt O2 Delivery Device Ventilator
[2021-01-03] MEDS: ALPRAZolam 0.5 MG TABLET PO SCH ×4 (05:25→21:25)
[2021-01-03] MEDS: fentaNYL INJ 5,000 MCG in SODIUM CHLORIDE 0.9% 150 ML IV PRN ×2 (06:01→16:16)
[2021-01-03 06:12] LABS: Basophils % 0.1 % (0.0-0.8); Eosinophils # 0.2 10*3/uL (0.0-0.87); Eosinophils % 2.9 % (0.00-10.9); Hematocrit 25.1 VOL% (35.7-47.0); Hemoglobin 7.8 GM/DL (12.0-16.0); Immature Granulocytes % 0.5 %; Immature Granulocytes Absolute 0.04 #; Lymphocytes # 1.1 10*3/uL (1.4-4.0); Lymphocytes % 13.6 % (21.3-54.2); Mean Corpuscular HGB Conc 31.1 GM/DL (32-36); Mean Corpuscular Volume 87.2 FL (87-102); Mean Platelet Volume 11.5 FL (9.6-12.0); Monocytes % 9.4 % (1.7-12.7); Neutrophils % 73.5 % (38.7-73.9); Platelet Count 166 T/CUMM (130-400); Red Blood Count 2.88 MC/CUMM (3.8-5.5); Red Cell Distribution Width 16.8 % (9.3-17.3)
[2021-01-03 06:39] LABS: Calcium 8.2 MG/DL (8.5-10.1); Osmolality,Calculated 276.7 MOS/KG (273-304); Potassium 3.1 MMOL/L (3.5-5.1)
[2021-01-03] MEDS: POTASSIUM CHLORIDE RIDER 20 MEQ/100 ML PREMIX IV PRN ×2 (07:12→09:46)
[2021-01-03] MEDS: METOPROLOL TARTRATE 50 MG TABLET PO SCH ×2 (08:37→21:25)
[2021-01-03] MEDS: PANTOPRAZOLE 40 MG VIAL IV SCH (08:37)
[2021-01-03] MEDS: predniSONE 20 MG TABLET PO SCH (08:37)
[2021-01-03] MEDS: QUEtiapine 25 MG TABLET PO SCH ×2 (08:38→21:25)
[2021-01-03] MEDS: CHOLECALCIFEROL 1,000 UNIT TABLET PO SCH (08:38)
[2021-01-03] MEDS: FAMOTIDINE 8 MG/ML 50 ML/BOTTLE PER TUBE SCH ×4 (08:41→21:25)
[2021-01-03] MEDS: fentaNYL 25 MCG/HR PATCH TRANSDERM SCH (09:45)
[2021-01-03] MEDS ORDERED: SODIUM CHLORIDE 0.9% 500 ML IV ONE (22:22)
[2021-01-04] MEDS: INSULIN REGULAR 100 UNIT/ML SUBCUT SCH ×5 (00:19→23:35)
[2021-01-04] MEDS: CEFEPIME 1,000 MG in SODIUM CHLORIDE 0.9% 100 ML IV SCH ×5 (00:19→23:35)
[2021-01-04] MEDS: VANCOMYCIN INJ 1,750 MG in SODIUM CHLORIDE 0.9% 500 ML IV SCH ×2 (03:37→13:09)
[2021-01-04] MEDS: metroNIDAZOLE INJ 500 MG/100 ML PREMIX IV SCH ×3 (03:37→17:44)
[2021-01-04 03:43] LABS: ABG Base Excess 6.7 MMOL/L (-2.5-2.5); ABG HCO3 30.5 MMOL/L (20-26); ABG Oxygen Saturation 92.5 % (95-100); ABG PH 7.475 (7.35-7.45); ABG PO2 61.9 MM HG (80-95); ABG TCO2 28.8 MMOL/L (23-27)
[2021-01-04] MEDS: ALPRAZolam 0.5 MG TABLET PO SCH ×4 (05:36→23:35)
[2021-01-04 05:48] LABS: Basophils % 0.1 % (0.0-0.8); Eosinophils # 0.3 10*3/uL (0.0-0.87); Eosinophils % 3.4 % (0.00-10.9); Hematocrit 23.9 VOL% (35.7-47.0); Hemoglobin 7.5 GM/DL (12.0-16.0); Immature Granulocytes % 0.7 %; Immature Granulocytes Absolute 0.05 #; Lymphocytes # 1.2 10*3/uL (1.4-4.0); Lymphocytes % 15.8 % (21.3-54.2); Mean Corpuscular HGB Conc 31.4 GM/DL (32-36); Mean Corpuscular Volume 85.1 FL (87-102); Mean Platelet Volume 11.2 FL (9.6-12.0); Monocytes % 8.4 % (1.7-12.7); Neutrophils % 71.6 % (38.7-73.9); Platelet Count 164 T/CUMM (130-400); Red Blood Count 2.81 MC/CUMM (3.8-5.5); Red Cell Distribution Width 16.6 % (9.3-17.3); White Blood Count 7.5 T/CUMM (4-12)
[2021-01-04 06:04] LABS: Calcium 8.1 MG/DL (8.5-10.1); Osmolality,Calculated 284.1 MOS/KG (273-304); Potassium 3.3 MMOL/L (3.5-5.1)
[2021-01-04] MEDS: POTASSIUM CHLORIDE 20 MEQ PACK PO PRN ×4 (06:18→12:00)
[2021-01-04] MEDS: MAGNESIUM SULF RIDER 2 GM/50 ML PREMIX IV PRN ×2 (06:18→10:00)
[2021-01-04] MEDS: PANTOPRAZOLE 40 MG VIAL IV SCH (08:18)
[2021-01-04] MEDS: METOPROLOL TARTRATE 50 MG TABLET PO SCH ×2 (08:18→20:22)
[2021-01-04] MEDS: predniSONE 20 MG TABLET PO SCH (08:18)
[2021-01-04] MEDS: QUEtiapine 25 MG TABLET PO SCH ×2 (08:18→20:23)
[2021-01-04] MEDS: CHOLECALCIFEROL 1,000 UNIT TABLET PO SCH (08:18)
[2021-01-04] MEDS ORDERED: ALUMINUM/MAGNES/SIMETH MAX STR 30 ML UDCUP PO PRN (08:56)
[2021-01-04] MEDS: MAGNESIUM SULF RIDER 4 GM/100 ML PREMIX IV SCH ×2 (11:51→17:44)
[2021-01-04] MEDS: PHENOL 1.4% THROAT SPRAY 177 ML BOTTLE PO PRN ×2 (13:09→18:25)
[2021-01-05] MEDS: fentaNYL INJ 5,000 MCG in SODIUM CHLORIDE 0.9% 150 ML IV PRN ×2 (01:26→21:17)
[2021-01-05] MEDS: VANCOMYCIN INJ 1,750 MG in SODIUM CHLORIDE 0.9% 500 ML IV SCH ×2 (01:52→13:12)
[2021-01-05] MEDS: metroNIDAZOLE INJ 500 MG/100 ML PREMIX IV SCH ×3 (01:52→18:09)
[2021-01-05] MEDS ORDERED: LORazepam 2 MG/1 ML VIAL IV ONE (03:03)
[2021-01-05 04:25] LABS: ABG HCO3 30.8 MMOL/L (20-26); ABG Oxygen Saturation 94.9 % (95-100); ABG PCO2 46.5 MM HG (35-48); ABG PH 7.439 (7.35-7.45); ABG PO2 75.5 MM HG (80-95); ABG TCO2 32.2 MMOL/L (23-27); Allen Test Positive; Pt O2 Delivery Device Ventilator
[2021-01-05] MEDS: CEFEPIME 1,000 MG in SODIUM CHLORIDE 0.9% 100 ML IV SCH ×4 (04:30→22:54)
[2021-01-05 04:33] LABS: Basophils % 0.1 % (0.0-0.8); Eosinophils # 0.3 10*3/uL (0.0-0.87); Eosinophils % 3.7 % (0.00-10.9); Hematocrit 22.9 VOL% (35.7-47.0); Immature Granulocytes % 0.7 %; Immature Granulocytes Absolute 0.06 #; Lymphocytes # 1.4 10*3/uL (1.4-4.0); Lymphocytes % 16.4 % (21.3-54.2); Mean Corpuscular HGB Conc 30.6 GM/DL (32-36); Mean Corpuscular Volume 87.1 FL (87-102); Mean Platelet Volume 11.4 FL (9.6-12.0); Monocytes % 8.6 % (1.7-12.7); Neutrophils % 70.5 % (38.7-73.9); Platelet Count 151 T/CUMM (130-400); Red Blood Count 2.63 MC/CUMM (3.8-5.5); White Blood Count 8.5 T/CUMM (4-12)
[2021-01-05 04:44] LABS: Calcium 8.1 MG/DL (8.5-10.1); Osmolality,Calculated 281.3 MOS/KG (273-304); Potassium 3.4 MMOL/L (3.5-5.1)
[2021-01-05] MEDS: INSULIN REGULAR 100 UNIT/ML SUBCUT SCH ×3 (05:26→17:25)
[2021-01-05] MEDS: ALPRAZolam 0.5 MG TABLET PO SCH ×3 (05:26→17:25)
[2021-01-05] MEDS: POTASSIUM CHLORIDE RIDER 10 MEQ/100 ML PREMIX IV PRN (05:27)
[2021-01-05] MEDS ORDERED: SODIUM CHLORIDE 0.9% 1,000 ML IV PRN (06:34)
[2021-01-05] MEDS ORDERED: METHYLENE BLUE 10 ML VIAL IV ONE (06:35)
[2021-01-05] MEDS ORDERED: TISSUE ADHESIVE 1 EACH APPLICATOR TOP ONE (06:37)
[2021-01-05] MEDS ORDERED: propofoL 200 MG/20 ML VIAL IV ONE (06:40)
[2021-01-05] MEDS ORDERED: ROCURONIUM 50 MG/5 ML VIAL IV ONE ×2 (06:40→07:43)
[2021-01-05] MEDS ORDERED: fentaNYL 250 MCG/5 ML VIAL ONE (06:41)
[2021-01-05] MEDS ORDERED: MIDAZOLAM 2 MG/2 ML VIAL ONE ×3 (06:41→07:57)
[2021-01-05] MEDS ORDERED: ALBUMIN 5% 12.5 GM/250 ML VIAL IV ONE (06:51)
[2021-01-05] MEDS ORDERED: ceFAZolin 1,000 MG VIAL ONE ×2 (07:29→07:31)
[2021-01-05] MEDS ORDERED: PHENYLEPHRINE 1 MG/10 ML SYRINGE IV ONE (08:08)
[2021-01-05] MEDS: QUEtiapine 25 MG TABLET PO SCH ×2 (08:29→20:12)
[2021-01-05] MEDS: METOPROLOL TARTRATE 50 MG TABLET PO SCH ×2 (08:29→20:12)
[2021-01-05] MEDS: CHOLECALCIFEROL 1,000 UNIT TABLET PO SCH (08:29)
[2021-01-05] MEDS: predniSONE 20 MG TABLET PO SCH (08:29)
[2021-01-05] MEDS: PANTOPRAZOLE 40 MG VIAL IV SCH (08:55)
[2021-01-05] MEDS: LORazepam 2 MG/1 ML VIAL IV PRN (10:00)
[2021-01-05] MEDS ORDERED: MORPHINE 2 MG/1 ML SYRINGE ONE (22:45)
[2021-01-05] MEDS: MORPHINE 2 MG/1 ML SYRINGE IV PRN (22:54)
[2021-01-06] MEDS: INSULIN REGULAR 100 UNIT/ML SUBCUT SCH ×4 (00:44→18:22)
[2021-01-06] MEDS: ALPRAZolam 0.5 MG TABLET PO SCH ×4 (00:45→17:29)
[2021-01-06] MEDS: VANCOMYCIN INJ 1,750 MG in SODIUM CHLORIDE 0.9% 500 ML IV SCH ×2 (02:17→13:11)
[2021-01-06] MEDS: metroNIDAZOLE INJ 500 MG/100 ML PREMIX IV SCH ×2 (02:17→10:12)
[2021-01-06 04:58] LABS: ABG Base Excess 5.3 MMOL/L (-2.5-2.5); ABG HCO3 29.8 MMOL/L (20-26); ABG PCO2 44.1 MM HG (35-48); ABG PH 7.448 (7.35-7.45); ABG PO2 115.4 MM HG (80-95); ABG TCO2 31.2 MMOL/L (23-27)
[2021-01-06] MEDS: CEFEPIME 1,000 MG in SODIUM CHLORIDE 0.9% 100 ML IV SCH ×4 (05:28→22:33)
[2021-01-06 05:44] LABS: Basophils % 0.3 % (0.0-0.8); Eosinophils # 0.3 10*3/uL (0.0-0.87); Eosinophils % 4.1 % (0.00-10.9); Hematocrit 24.8 VOL% (35.7-47.0); Hemoglobin 7.7 GM/DL (12.0-16.0); Immature Granulocytes % 0.8 %; Immature Granulocytes Absolute 0.05 #; Lymphocytes # 1.3 10*3/uL (1.4-4.0); Lymphocytes % 18.9 % (21.3-54.2); Mean Corpuscular Volume 86.1 FL (87-102); Mean Platelet Volume 11.6 FL (9.6-12.0); Monocytes % 9.2 % (1.7-12.7); Neutrophils % 66.7 % (38.7-73.9); Platelet Count 157 T/CUMM (130-400); Red Blood Count 2.88 MC/CUMM (3.8-5.5); Red Cell Distribution Width 16.3 % (9.3-17.3); White Blood Count 6.7 T/CUMM (4-12)
[2021-01-06 06:09] LABS: Calcium 8.3 MG/DL (8.5-10.1); Osmolality,Calculated 275.4 MOS/KG (273-304); Potassium 2.9 MMOL/L (3.5-5.1)
[2021-01-06] MEDS: LORazepam 2 MG/1 ML VIAL IV PRN (06:33)
[2021-01-06] MEDS: POTASSIUM CHLORIDE RIDER 10 MEQ/100 ML PREMIX IV PRN ×3 (06:33→23:13)
[2021-01-06] MEDS: MORPHINE 2 MG/1 ML SYRINGE IV PRN ×2 (08:52→20:53)
[2021-01-06] MEDS: POTASSIUM CHLORIDE RIDER 20 MEQ/100 ML PREMIX IV SCH ×2 (09:01→10:13)
[2021-01-06] MEDS: predniSONE 20 MG TABLET PO SCH (09:24)
[2021-01-06] MEDS: QUEtiapine 25 MG TABLET PO SCH ×2 (09:24→20:26)
[2021-01-06] MEDS: fentaNYL 25 MCG/HR PATCH TRANSDERM SCH (09:24)
[2021-01-06] MEDS: CHOLECALCIFEROL 1,000 UNIT TABLET PO SCH (09:24)
[2021-01-06] MEDS: METOPROLOL TARTRATE 50 MG TABLET PO SCH ×2 (09:24→20:26)
[2021-01-06] MEDS: PANTOPRAZOLE 40 MG VIAL IV SCH (09:27)
[2021-01-06] MEDS: MAGNESIUM SULF RIDER 2 GM/50 ML PREMIX IV PRN (17:26)
[2021-01-06] MEDS: PHENOL 1.4% THROAT SPRAY 177 ML BOTTLE PO PRN (20:33)
[2021-01-07] MEDS: INSULIN REGULAR 100 UNIT/ML SUBCUT SCH ×5 (00:26→23:35)
[2021-01-07] MEDS: POTASSIUM CHLORIDE RIDER 10 MEQ/100 ML PREMIX IV PRN ×2 (00:26→01:35)
[2021-01-07] MEDS: MORPHINE 2 MG/1 ML SYRINGE IV PRN ×3 (01:36→20:53)
[2021-01-07] MEDS: VANCOMYCIN INJ 1,750 MG in SODIUM CHLORIDE 0.9% 500 ML IV SCH ×2 (02:57→15:29)
[2021-01-07 03:17] LABS: ABG Base Excess 4.6 MMOL/L (-2.5-2.5); ABG HCO3 28.6 MMOL/L (20-26); ABG Oxygen Saturation 98.6 % (95-100); ABG PCO2 43.9 MM HG (35-48); ABG PH 7.433 (7.35-7.45); ABG TCO2 27.3 MMOL/L (23-27)
[2021-01-07] MEDS: CEFEPIME 1,000 MG in SODIUM CHLORIDE 0.9% 100 ML IV SCH ×4 (05:53→22:51)
[2021-01-07 06:58] LABS: Basophils % 0.2 % (0.0-0.8); Eosinophils # 0.2 10*3/uL (0.0-0.87); Hematocrit 25.1 VOL% (35.7-47.0); Hemoglobin 7.8 GM/DL (12.0-16.0); Immature Granulocytes Absolute 0.06 #; Lymphocytes # 1.2 10*3/uL (1.4-4.0); Lymphocytes % 19.1 % (21.3-54.2); Mean Corpuscular HGB Conc 31.1 GM/DL (32-36); Mean Corpuscular Volume 86.6 FL (87-102); Mean Platelet Volume 10.5 FL (9.6-12.0); Monocytes % 9.6 % (1.7-12.7); Neutrophils % 67.1 % (38.7-73.9); Platelet Count 152 T/CUMM (130-400); Red Cell Distribution Width 16.4 % (9.3-17.3); White Blood Count 6.1 T/CUMM (4-12)
[2021-01-07 07:19] LABS: Calcium 8.3 MG/DL (8.5-10.1); Osmolality,Calculated 271.8 MOS/KG (273-304); Potassium 2.8 MMOL/L (3.5-5.1)
[2021-01-07] MEDS: POTASSIUM CHLORIDE 20 MEQ PACK PO PRN (08:30)
[2021-01-07] MEDS: predniSONE 20 MG TABLET PO SCH (08:30)
[2021-01-07] MEDS: METOPROLOL TARTRATE 50 MG TABLET PO SCH ×2 (08:30→21:00)
[2021-01-07] MEDS: CHOLECALCIFEROL 1,000 UNIT TABLET PO SCH (08:30)
[2021-01-07] MEDS: QUEtiapine 25 MG TABLET PO SCH ×2 (08:30→21:00)
[2021-01-07] MEDS: PANTOPRAZOLE 40 MG VIAL IV SCH (08:31)
[2021-01-07] MEDS: POTASSIUM CHLORIDE 20 MEQ PACK PEG SCH ×4 (08:46→21:00)
[2021-01-07] MEDS: ALPRAZolam 0.5 MG TABLET PO SCH ×2 (11:55→17:50)
[2021-01-07] MEDS: LORazepam 2 MG/1 ML VIAL IV PRN (20:55)
[2021-01-08] MEDS: ALPRAZolam 0.5 MG TABLET PO SCH ×3 (00:59→12:27)
[2021-01-08] MEDS: VANCOMYCIN INJ 1,750 MG in SODIUM CHLORIDE 0.9% 500 ML IV SCH ×2 (01:00→15:54)
[2021-01-08] MEDS: MORPHINE 2 MG/1 ML SYRINGE IV PRN ×2 (01:11→03:00)
[2021-01-08] MEDS: LORazepam 2 MG/1 ML VIAL IV PRN ×2 (01:11→03:00)
[2021-01-08 03:25] LABS: ABG Base Excess 4.2 MMOL/L (-2.5-2.5); ABG HCO3 28.2 MMOL/L (20-26); ABG Oxygen Saturation 96.9 % (95-100); ABG PCO2 42.6 MM HG (35-48); ABG PH 7.437 (7.35-7.45); ABG PO2 86.2 MM HG (80-95); ABG TCO2 26.8 MMOL/L (23-27)
[2021-01-08] MEDS ORDERED: SODIUM PHOSPHATE ENEMA 133 ML BOTTLE RECTAL PRN (03:52)
[2021-01-08 05:22] LABS: Basophils % 0.2 % (0.0-0.8); Eosinophils # 0.2 10*3/uL (0.0-0.87); Eosinophils % 3.5 % (0.00-10.9); Hematocrit 24.9 VOL% (35.7-47.0); Hemoglobin 7.9 GM/DL (12.0-16.0); Immature Granulocytes % 1.2 %; Immature Granulocytes Absolute 0.08 #; Lymphocytes # 1.6 10*3/uL (1.4-4.0); Lymphocytes % 24.6 % (21.3-54.2); Mean Corpuscular HGB Conc 31.7 GM/DL (32-36); Mean Corpuscular Volume 84.1 FL (87-102); Mean Platelet Volume 11.1 FL (9.6-12.0); Monocytes % 9.1 % (1.7-12.7); Neutrophils % 61.4 % (38.7-73.9); Platelet Count 178 T/CUMM (130-400); Red Blood Count 2.96 MC/CUMM (3.8-5.5); Red Cell Distribution Width 16.6 % (9.3-17.3); White Blood Count 6.6 T/CUMM (4-12)
[2021-01-08 05:40] LABS: Calcium 8.5 MG/DL (8.5-10.1); Osmolality,Calculated 282.1 MOS/KG (273-304); Potassium 3.2 MMOL/L (3.5-5.1)
[2021-01-08] MEDS: CEFEPIME 1,000 MG in SODIUM CHLORIDE 0.9% 100 ML IV SCH ×2 (06:14→12:27)
[2021-01-08] MEDS: INSULIN REGULAR 100 UNIT/ML SUBCUT SCH ×2 (06:15→12:15)
[2021-01-08] MEDS ORDERED: MAGNESIUM SULF RIDER 4 GM/100 ML PREMIX IV ONE (07:30)
[2021-01-08] MEDS ORDERED: SODIUM PHOSPHATE ENEMA 133 ML BOTTLE RECTAL ONE (08:00)
[2021-01-08] MEDS: METOPROLOL TARTRATE 50 MG TABLET PO SCH (08:27)
[2021-01-08] MEDS: QUEtiapine 25 MG TABLET PO SCH (08:27)
[2021-01-08] MEDS: predniSONE 20 MG TABLET PO SCH (08:27)
[2021-01-08] MEDS: CHOLECALCIFEROL 1,000 UNIT TABLET PO SCH (08:27)
[2021-01-08] MEDS: POTASSIUM CHLORIDE 20 MEQ PACK PEG SCH ×2 (08:27→12:27)
[2021-01-08] MEDS: PANTOPRAZOLE 40 MG VIAL IV SCH (08:31)
[2021-01-08 13:21] LABS: Bilirubin,Urine Negative (Negative); Blood, Urine Small mg/dL (Negative); Glucose,Urine (UA) 50 mg/dL (Negative); Ketones,Urine Negative (Negative); Mucus,Urine Occasional /LPF (Occasional); Nitrite,Urine Negative (Negative); Protein,Urine Negative; RBC,Urine 7 /HPF (0-4); Squamous Epithelial Cell,Urine Occasional /HPF (0-10); Urine Appearance CLEAR (Clear); Urine Color Straw (Yellow); Urine Specific Gravity 1.005 (1.001-1.035); Urine Urobilinogen < 2.0 EU/DL (0.2-1.0)
== END 2021-01-08 14:45 | DRG 4 ==
LOC: N.EDINP 18:26 → N.ED 18:26 → N.2E 22:35 → SUATTDRO 23:34 → N.ICU 11-28 09:29 → N.2E 11-30 19:52 → N.ICU 12-07 21:59
PROVIDERS: ADMIT Internal Medicine; ATTEND Internal Medicine